=== PATIENT | male | born 1955 | race Caucasian/White ===

== ENCOUNTER → 2018-08-04 09:58 | Outpatient (CLI) | payer BC, SELFPAY ==
[2018-08-04 10:21] LABS: Add Manual Diff / Slide Review NO; Basophils Percent Auto 1.4 % (0-2); Eosinophils Percent Auto 4.2 % (2-4); Hematocrit 41.3 % (41-53); Hemoglobin 14.3 g/dL (13.5-17.5); Lymphocytes Percent Auto 17.4 % (25-40); Mean Corpuscular HGB Conc 34.7 % (30-36); Mean Corpuscular Hemoglobin 31.8 PG (26-34); Mean Corpuscular Volume 91.6 fL (80-100); Monocytes Percent Auto 11.3 % (3-14); Neutrophils Absolute Auto 2400 /uL (3000-5900); Neutrophils Percent Auto 65.7 % (50-75); Platelet Count 150 X10^3/uL (150-400); Red Cell Distribution Width 12.9 % (11.6-14.8); White Blood Cell Count 3.6 X10^3/uL (4.5-11.0)
[2018-08-04 10:53] LABS: Alanine Aminotransferase 43 IU/L (21-72); Albumin 4.3 g/dL (3.5-5.0); Albumin Globulin Ratio 1.3 (1.0-2.8); Alkaline Phosphatase 50 U/L (38-126); Aspartate Aminotransferase 36 IU/L (17-59); Bilirubin Total 0.5 mg/dL (0.2-1.3); Blood Urea Nitrogen 22 mg/dL (9-20); Carbon Dioxide 33 mmol/L (22-32); Chloride 103 mmol/L (98-107); Cholesterol 213 mg/dL (140-199); Estimated Glomerular Filt Rate > 60.0 mL/min (>60); Globulin 3.2 g/dL (1.7-4.1); Glucose 103 mg/dL (80-110); HDL Cholesterol 56 mg/dL (40-60); HEMOLYSIS < 15 (0-50); LDL Cholesterol Calculated 142 mg/dL (<100); Potassium 4.7 mmol/L (3.4-5.1); Sodium 144 mmol/L (137-145); Total Protein 7.5 g/dL (6.3-8.2); Triglycerides 73 mg/dL (35-150)
== END ==
PROVIDERS: PCP Family Medicine; Visit Provider Family Medicine
DX: E78.2 Mixed hyperlipidemia (principal); Z12.5 Encounter for screening for malignant neoplasm of prostate; Z79.01 Long term (current) use of anticoagulants; Z95.2 Presence of prosthetic heart valve
CPT/HCPCS: 36415; 80053; 80061; 84153; 84443; 85025

== ENCOUNTER → 2018-08-18 10:01 | Outpatient (CLI) | payer BC, SELFPAY ==
--- NOTE | 2018-08-18 10:06 | DI.RAD.S_ITS ---
PROCEDURE: XR KNEE RT 3V INDICATIONS: RIGHT KNEE PAIN TECHNIQUE: 3 views of the knee were acquired. COMPARISON: None. FINDINGS: Bones: No fractures or dislocations. No suspicious bony lesions. Minimal narrowing of the medial joint space. Soft tissues: No joint effusion. No suspicious soft tissue calcifications. IMPRESSION: Minimal degenerative joint disease, probably age appropriate. Dictated by: Collin Walters M.D. on 08/18/2018 at 15:32 Approved by: Collin Walters M.D. on 08/18/2018 at 15:34
[2018-08-20 14:10] LABS: PSA Free % 23 % (calc) (> 25); PSA, Total 4.7 ng/mL (< 4.1)
== END ==
PROVIDERS: PCP Family Medicine; Visit Provider Family Medicine
DX: M25.561 Pain in right knee (principal); R97.20 Elevated prostate specific antigen [PSA]
CPT/HCPCS: 36415; 73562; 84153; 84154

== ENCOUNTER → 2018-10-19 09:51 | Outpatient (CLI) | payer BC, SELFPAY | PROVIDERS: PCP Family Medicine; Visit Provider Internal Medicine Endocrinology, Diabetes & Metabolism | DX: M81.0 Age-related osteoporosis without current pathological fracture (principal); Z82.62 Family history of osteoporosis | CPT/HCPCS: 77080 ==

== ENCOUNTER → 2020-06-05 12:41 | Outpatient (CLI) | payer BC, SELFPAY ==
[2020-06-05 13:15] LABS: Add Manual Diff / Slide Review NO; Basophils Absolute Auto 100 /uL (0-100); Basophils Percent Auto 2.3 % (0-2); Eosinophils Absolute Auto 100 /uL (0-450); Eosinophils Percent Auto 4.3 % (2-4); Hematocrit 44.1 % (41-53); Hemoglobin 14.8 g/dL (13.5-17.5); Lymphocytes Absolute Auto 600 /uL (1100-4500); Lymphocytes Percent Auto 20.5 % (25-40); Mean Corpuscular HGB Conc 33.5 % (30-36); Mean Corpuscular Hemoglobin 31.5 PG (26-34); Mean Corpuscular Volume 93.9 fL (80-100); Monocytes Absolute Auto 300 /uL (0-900); Monocytes Percent Auto 11.4 % (3-14); Neutrophils Absolute Auto 1800 /uL (1500-7000); Neutrophils Percent Auto 61.5 % (50-75); Platelet Count 163 X10^3/uL (150-400); Red Cell Distribution Width 13.1 % (11.6-14.8)
[2020-06-05 13:34] LABS: Blood Urea Nitrogen 20 mg/dL (9-20); Calcium 9.4 mg/dL (8.4-10.2); Carbon Dioxide 31 mmol/L (22-32); Chloride 103 mmol/L (98-107); Estimated Glomerular Filt Rate > 60.0 mL/min (>60); Glucose 100 mg/dL (80-110); HEMOLYSIS < 15 (0-50); Magnesium 2.1 mg/dL (1.6-2.3); Potassium 4.7 mmol/L (3.4-5.1); Sodium 138 mmol/L (137-145)
[2020-06-05 14:18] LABS: Thyroid Stimulating Hormone 0.902 uIU/mL (0.47-4.68)
== END ==
PROVIDERS: PCP Family Medicine; Referring Provider Family Medicine; Visit Provider Family Medicine
DX: R42 Dizziness and giddiness (principal)
CPT/HCPCS: 36415; 80048; 83735; 84443; 85025

== ENCOUNTER → 2020-08-21 08:57 | Outpatient (CLI) | payer MEDICARE, SELFPAY ==
[2020-08-21 10:47] LABS: Alanine Aminotransferase 37 IU/L (<50); Albumin 4.3 g/dL (3.5-5.0); Albumin Globulin Ratio 1.4 (1.0-2.8); Alkaline Phosphatase 50 U/L (38-126); Aspartate Aminotransferase 37 IU/L (17-59); BUN Creatinine Ratio 21.9 (6-22); Bilirubin Total 0.6 mg/dL (0.2-1.3); Blood Urea Nitrogen 23 mg/dL (9-20); Calcium 9.3 mg/dL (8.4-10.2); Carbon Dioxide 33 mmol/L (22-32); Chloride 104 mmol/L (98-107); Cholesterol 213 mg/dL (140-199); Estimated Glomerular Filt Rate > 60.0 mL/min (>60); Globulin 3.1 g/dL (1.7-4.1); Glucose 102 mg/dL (80-110); HDL Cholesterol 62 mg/dL (40-60); HEMOLYSIS < 15 (0-50); LDL Cholesterol Calculated 131 mg/dL (<100); Potassium 4.8 mmol/L (3.4-5.1); Sodium 140 mmol/L (137-145); Total Protein 7.4 g/dL (6.3-8.2); Triglycerides 98 mg/dL (35-150)
[2020-08-22 08:03] LABS: PSA Free % 25.7 % (.); PSA, Total 4.7 ng/mL (0.0-4.0)
== END ==
PROVIDERS: PCP Family Medicine; Referring Provider Family Medicine; Visit Provider Family Medicine
DX: E78.2 Mixed hyperlipidemia (principal); R97.20 Elevated prostate specific antigen [PSA]; Z13.6 Encounter for screening for cardiovascular disorders
CPT/HCPCS: 36415; 80053; 80061; 84153; 84154

== ENCOUNTER → 2020-11-29 14:31 | Outpatient (CLI) | payer MEDICARE, SELFPAY ==
[2020-11-29] MEDS: COVID-19 VACC #1, MRNA(MOD) 100 MCG/0.5 ML VIAL IM (14:37)
== END ==
PROVIDERS: PCP Family Medicine; Visit Provider Internal Medicine
DX: Z23 Encounter for immunization (principal)
CPT/HCPCS: 0011A; 91301

== ENCOUNTER → 2020-12-27 14:21 | Outpatient (CLI) | payer MEDICARE, SELFPAY ==
[2020-12-27] MEDS: COVID-19 VACC #2, MRNA(MOD) 100 MCG/0.5 ML VIAL IM (14:39)
== END ==
PROVIDERS: PCP Family Medicine; Visit Provider Internal Medicine
DX: Z23 Encounter for immunization (principal)
CPT/HCPCS: 0012A; 91301

== ENCOUNTER → 2021-03-20 09:02 | Outpatient (CLI) | payer MEDICARE, SELFPAY ==
[2021-03-20 10:26] LABS: COVID19 -Nasal RAPID Negative (Negative)
== END ==
PROVIDERS: PCP Family Medicine; Referring Provider Surgery; Visit Provider Surgery
DX: Z20.822 Contact with and (suspected) exposure to COVID-19 (principal); Z01.812 Encounter for preprocedural laboratory examination
CPT/HCPCS: 87635; C9803

== ENCOUNTER 2021-03-21 06:46 | Day surgery (SDC) | payer MEDICARE, SELFPAY ==
[2021-03-21] VITALS (9 sets, daily range): BP systolic 105–147; BP diastolic 53–73; PULSE 47–60; RESP 8–18; TEMP 36.4–36.8; O2SAT 96–99; BMI 23.6
[2021-03-21] MEDS: SODIUM CHLORIDE 0.9% 1,000 ML 200 ML IV (07:10)
--- NOTE | 2021-03-21 07:31 | P.HP_ITS ---
History of Present Illness History of Present Illness Date Patient Seen: 03/21/21 Time Patient Seen: 07:32 Chief complaint: DX/SCREENING COLONOSCOPY Narrative: This is a 65-year-old man with a complex medical history including aortic root replacement and aortic valve replacement in 2004, chronic anticoagulation on warfarin, orchidectomy for testicular cancer in 1999, family history of colon cancer in his mother who was diagnosed around age 70, and personal history of colon polyps. He has had screening colonoscopies every 5 years, and his last 1 was done in February of 2016. No polyps were found on that colonoscopy. He is due for screening colonoscopy at the 5 year klever because of the family history. 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 He last saw his precision thread grinder operator in August, and says that he was given a clean bill of health at that point based on EKG and exam. He denies any melena, hematochezia, unexplained abdominal pain, unexplained weight loss, change in bowel habit. We will go ahead with colonoscopy today with his coumadin on board. His INR is 2.5. We have agreed that if anything is found that needs to be removed he will stop his coumadin and have a repeat scope at a later time. ROS: Thirteen system review is otherwise negative other than as mentioned below and in HPI. PE: GENERAL: Well groomed and cooperative. Appears stated age. Answers questions promptly and appropriately. Vital signs noted. HENT: Normocephalic, atraumatic. Hearing intact. EYES: Conjunctiva pink, sclera white, no periorbital swelling. CARDIOVASCULAR: Regular rate. No pedal edema. RESPIRATORY: Non-tachypneic, breathing comfortably on room air. GASTROINTESTINAL: Abdomen soft and non-distended GENITALURINARY: No flank tenderness. MUSCULOSKELETAL: Equal tone and mass bilaterally. SKIN: Warm, dry, soft, appropriate color for ethnicity. No other lesions, rashes, or wounds. NEURO: Alert and Oriented X 3. No gross sensory deficits, or cognitive issues. PSYCH: Appropriate affect and mood. 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 Tobacco & Substance use: Smoking Status Never smoker alcohol intake current Meds Home Medications and Allergies Home Medications Medication Instructions Recorded Confirmed Type calcium citrate-vitamin D3 1 tab PO DAILY #0 01/21/17 03/21/21 History [Citracal + D Maximum] multivitamin [Multiple Vitamins] 1 tab PO QDAY #0 01/21/17 03/21/21 History aspirin 81 mg tablet,delayed 81 mg PO DAILY 08/18/18 03/21/21 History release coenzyme Q10 100 mg capsule 100 mg PO DAILY 08/18/18 03/21/21 History magnesium oxide 500 mg tablet 500 mg PO DAILY tab 08/18/18 03/21/21 History omega-3 fatty acids 1,000 mg PO DAILY 08/18/18 03/21/21 History metoprolol succinate 25 mg 25 mg PO DAILY 90 Days #90 tab 08/28/20 03/21/21 Rx tablet,extended release 24 hr simvastatin 40 mg tablet See Rx Instructions .ROUTE 08/28/20 03/21/21 Rx .COMPLEX #90 tablet warfarin 5 mg tablet 10 mg PO DAILY 90 Days #100 tab 08/28/20 03/21/21 Rx vitamin B complex 1 tab PO DAILY 10/04/20 03/21/21 History epinephrine [EpiPen] 0.3 mg IM ONCE PRN 03/21/21 03/21/21 History Allergies Allergy/AdvReac Type Severity Reaction Status Date / Time No Known Drug Allergies Allergy Verified 01/18/21 08:13 Assessment & Plan Assessment and plan (1) Status post aortic valve replacement and aortoplasty: Status: None (2) History of ascending aorta repair: Status: None (3) custodial current use of anticoagulant therapy: Status: None (4) Personal history of colonic polyps: Status: Acute (5) Family history of colon cancer in mother: Status: Acute Assessment & Plan narrative: Risks and benefits of screening colonoscopy and possible polypectomy were discussed with the patient including risk of bleeding, perforation, need for additional procedures, risks of anesthesia. The patient desires to proceed with the colonoscopy procedure. COVID-19 COVID-19 status: Negative Result date/Date tested (Pos, Neg/Pending): 03/20/21 Time Spent With Patient Time with patient: 15-24 minutes
--- NOTE | 2021-03-21 07:39 | PM.OP.ENDO ---
Operative Date/Time/Diagnoses Date of procedure: 03/21/21 Time of procedure: 07:40 Pre-op diagnosis: Personal history colon polyps, high risk family history for colon cancer Post-op diagnosis: same (No polyps found on today's exam) Procedure & Clinicians Study performed: Colonoscopy Procedural sedation performed by the endoscopist Same procedure as scheduled: Yes Indications: Personal history colon polyps, high risk family history of colon cancer Surgeon: Gerda Chavez Procedure Notes SCOAP/Timeout: Performed Procedure in detail: The patient was brought to the room and placed in left lateral decubitus position with all bony prominences padded. A time-out was performed and then the patient was given procedural sedation starting with [4] mg of Versed and [100] mcg of fentanyl. Vitals were monitored throughout the procedure and remained stable. Once adequately sedated, the procedure was begun. A rectal exam was performed revealing [no abnormalities]. The colonoscope was then introduced to the rectum and advanced to the cecum in the usual fashion. []The cecum was identified by the appendiceal orifice, the mucosal tri-fold, and the ileocecal valve. The scope was then retracted while rotating side to side and examining each mucosal fold. [] At the conclusion of the procedure retroflexion was performed and [small grade 1-2 internal hemorrhoids without stigmata of bleeding were seen]. The scope was then withdrawn from the rectum the procedure was concluded. The patient tolerated the procedure well and was transferred to the PACU in stable condition. Total of 8 mg of Versed and 50 micro g of fentanyl were given for the entire procedure. Scope withdrawal time: 6 Sedation minutes: 18 Specimen(s): none sent Complications: none Post-procedure Recommendations: Colonscopy in 5 years (Due to family history and personal history of colon polyps) Follow up: as needed Disposition: PACU
[2021-03-21] MEDS: MIDAZOLAM 5 MG/5 ML VIAL IV (07:44)
[2021-03-21] MEDS: fentaNYL 250 MCG/5 ML INJ IV (07:44)
== END 2021-03-21 09:05 | disposition home or self-care (01) ==
PROVIDERS: PCP Family Medicine; Referring Provider Surgery; Visit Provider Surgery
PROC: 0DJD8ZZ Inspection of Lower Intestinal Tract, Via Natural or Artificial Opening Endoscopic (ICD-10-PCS; CPT 45378; principal; 2021-03-21 07:45)
DX: Z12.11 Encounter for screening for malignant neoplasm of colon (principal); Z86.010 Personal history of colon polyps; Z80.0 Family history of malignant neoplasm of digestive organs; Z95.2 Presence of prosthetic heart valve; Z79.01 Long term (current) use of anticoagulants; K64.1 Second degree hemorrhoids
CPT/HCPCS: G0105; 85610; 99152; J2250; J3010

== ENCOUNTER → 2021-03-26 16:55 | Outpatient (CLI) | payer MEDICARE, SELFPAY ==
[2021-03-26 18:16] LABS: Prostate Specific Antigen 5.58 ng/mL (0.10-4.00)
== END ==
PROVIDERS: PCP Family Medicine; Referring Provider Specialist; Visit Provider Specialist
DX: R97.20 Elevated prostate specific antigen [PSA] (principal)
CPT/HCPCS: 36415; 84153

== ENCOUNTER → 2021-08-23 06:49 | Outpatient (CLI) | payer MEDICARE, SELFPAY ==
[2021-08-23 09:29] LABS: Alanine Aminotransferase 35 IU/L (<50); Albumin Globulin Ratio 1.4 (1.0-2.8); Alkaline Phosphatase 51 U/L (38-126); Aspartate Aminotransferase 35 IU/L (17-59); BUN Creatinine Ratio 23.9 (6-22); Bilirubin Total 0.5 mg/dL (0.2-1.3); Blood Urea Nitrogen 28 mg/dL (9-20); Calcium 9.5 mg/dL (8.4-10.2); Carbon Dioxide 31 mmol/L (22-32); Chloride 103 mmol/L (98-107); Cholesterol 197 mg/dL (140-199); Estimated Glomerular Filt Rate > 60.0 mL/min (>60); Globulin 2.8 g/dL (1.7-4.1); Glucose 115 mg/dL (80-110); HDL Cholesterol 70 mg/dL (40-60); HEMOLYSIS < 15 (0-50); LDL Cholesterol Calculated 105 mg/dL (<100); Potassium 4.2 mmol/L (3.4-5.1); Sodium 140 mmol/L (137-145); Total Protein 6.8 g/dL (6.3-8.2); Triglycerides 108 mg/dL (35-150)
== END ==
PROVIDERS: PCP Family Medicine; Referring Provider Family Medicine; Visit Provider Family Medicine
DX: E78.2 Mixed hyperlipidemia (principal); R79.9 Abnormal finding of blood chemistry, unspecified
CPT/HCPCS: 36415; 80053; 80061

== ENCOUNTER → 2021-09-20 13:59 | Outpatient (CLI) | payer MEDICARE, SELFPAY ==
[2021-09-20] MEDS: COVID-19 VACC #3, MRNA(MOD) 50 MCG/0.25 ML VIAL IM (14:03)
== END ==
PROVIDERS: PCP Family Medicine; Visit Provider Internal Medicine
DX: Z23 Encounter for immunization (principal)
CPT/HCPCS: 0013A; 91301

== ENCOUNTER → 2021-12-18 06:59 | Outpatient (CLI) | payer MEDICARE, SELFPAY ==
[2021-12-18 10:06] LABS: Prostate Specific Antigen 5.88 ng/mL (0.10-4.00)
== END ==
PROVIDERS: PCP Family Medicine; Referring Provider Specialist; Visit Provider Specialist
DX: R97.20 Elevated prostate specific antigen [PSA] (principal); N13.8 Other obstructive and reflux uropathy; N40.1 Benign prostatic hyperplasia with lower urinary tract symptoms
CPT/HCPCS: 36415; 84153

== ENCOUNTER → 2022-01-06 09:59 | Outpatient (CLI) | payer MEDICARE, SELFPAY ==
--- NOTE | 2022-01-06 10:01 | DI.MRI.S_ITS ---
PROCEDURE: MR PELIS WO/W CON INDICATIONS: BPH TECHNIQUE: Coronal HASTE, axial T1 FSE with fat saturation, 3-plane nonbreath-hold T2 FSE. After the administration of contrast, dynamic axial, delayed axial and coronal VIBE or 2-D FLASH with fat saturation through the pelvis. Optional diffusion weighted imaging and ADC may be performed. COMPARISON: None. FINDINGS: Image quality: There is magnetic susceptibility artifact within the rectum markedly limiting diffusion-weighted images. Prostate: Gland size is 4.8 x 3.4 x 3.0 cm; ellipsoid gland volume is 25 mL. The transition zone is heterogeneous in appearance with mild nodularity. Lesion size(s): Lesion 1: Approximately 1.9 x 0.8 x 1.8 cm. Lesion location(s) (sector): Lesion 1: Left posterolateral peripheral zone centered in the mid prostate. Lesion description: Lesion 1: There is an oval moderately T2 hypointense lesion with indistinct margins. The lesion extends to the capsule laterally without definite extraprostatic extension. T2 weighted imaging (T2WI) morphology score: Lesion 1: 3 Diffusion weighted imaging (DWI) morphology score: Lesion 1: 3 Dynamic contrast enhancement (DCE): Lesion 1: Present Lesion PI-RADS score: Lesion 1: PI-RADS 4 Genitourinary system: Bladder wall thickness is normal. Distal ureters are non distended. Bowel and peritoneum: No pathologic free pelvic fluid. Inferior colon and small bowel loops are normal in caliber. Nodes and vessels: No pelvic or inguinal adenopathy by size criteria. Iliac vessels are normal in caliber. Soft tissues: No inguinal hernias. Bones: Marrow demonstrates normal overall signal, without suspicious osseous lesions identified. IMPRESSION: 1. PI-RADS 4 lesion demonstrated within the left peripheral zone at high suspicion for clinically significant prostate cancer. No definite evidence of extraprostatic extension. 2. No pelvic lymphadenopathy. 3. No suspicious osseous lesions in the pelvis. Dictated by: Adelfo Sanchez M.D. on 01/06/2022 at 16:32 Approved by: Adelfo Sanchez M.D. on 01/06/2022 at 16:47
== END ==
PROVIDERS: PCP Family Medicine; Referring Provider Specialist; Visit Provider Specialist
DX: N40.1 Benign prostatic hyperplasia with lower urinary tract symptoms (principal); N13.8 Other obstructive and reflux uropathy
CPT/HCPCS: 72197; A9579

== ENCOUNTER → 2022-01-08 06:50 | Outpatient (CLI) | payer MEDICARE, SELFPAY ==
[2022-01-09 08:12] LABS: PSA Free % 25.5 % (.); PSA, Total 5.5 ng/mL (0.0-4.0)
== END ==
PROVIDERS: PCP Family Medicine; Referring Provider Specialist; Visit Provider Specialist
DX: R97.20 Elevated prostate specific antigen [PSA] (principal)
CPT/HCPCS: 36415; 84153; 84154

== ENCOUNTER → 2022-09-18 09:32 | Outpatient (CLI) | payer MEDICARE, SELFPAY ==
[2022-09-18 10:36] LABS: Hemoglobin A1C% w Est Avg Glu 5.9 % (4.0-6.0)
[2022-09-18 10:38] LABS: Alanine Aminotransferase 40 IU/L (<50); Albumin 4.2 g/dL (3.5-5.0); Albumin Globulin Ratio 1.3 (1.0-2.8); Alkaline Phosphatase 61 U/L (38-126); Aspartate Aminotransferase 37 IU/L (17-59); BUN Creatinine Ratio 17.5 (6-22); Bilirubin Total 0.7 mg/dL (0.2-1.3); Blood Urea Nitrogen 21 mg/dL (9-20); Calcium 8.8 mg/dL (8.4-10.2); Carbon Dioxide 30 mmol/L (22-32); Chloride 104 mmol/L (98-107); Cholesterol 207 mg/dL (140-199); Estimated Glomerular Filt Rate > 60 mL/min (>60); Globulin 3.2 g/dL (1.7-4.1); Glucose 109 mg/dL (80-110); HDL Cholesterol 65 mg/dL (40-60); HEMOLYSIS < 15 (0-50); LDL Cholesterol Calculated 125 mg/dL (<100); Potassium 4.2 mmol/L (3.4-5.1); Sodium 138 mmol/L (137-145); Total Protein 7.4 g/dL (6.3-8.2); Triglycerides 86 mg/dL (35-150)
[2022-09-18 10:43] LABS: Add Manual Diff / Slide Review NO; Basophils Absolute Auto 0 /uL (0-100); Basophils Percent Auto 1.4 % (0-2); Eosinophils Absolute Auto 100 /uL (0-450); Eosinophils Percent Auto 4.5 % (2-4); Hematocrit 41.9 % (41-53); Hemoglobin 13.9 g/dL (13.5-17.5); Lymphocytes Absolute Auto 500 /uL (1100-4500); Lymphocytes Percent Auto 15.7 % (25-40); Mean Corpuscular HGB Conc 33.1 % (30-36); Mean Corpuscular Hemoglobin 30.8 PG (26-34); Monocytes Absolute Auto 300 /uL (0-900); Monocytes Percent Auto 9.6 % (3-14); Neutrophils Absolute Auto 2200 /uL (1500-7000); Neutrophils Percent Auto 68.8 % (50-75); Platelet Count 132 X10^3/uL (150-400); Red Cell Distribution Width 12.8 % (11.6-14.8); White Blood Cell Count 3.2 X10^3/uL (4.5-11.0)
[2022-09-18 11:08] LABS: Prostate Specific Antigen 8.54 ng/mL (0.10-4.00)
== END ==
PROVIDERS: PCP Family Medicine; Referring Provider Family Medicine; Visit Provider Family Medicine
DX: Z00.00 Encounter for general adult medical examination without abnormal findings (principal)
CPT/HCPCS: 36415; 80053; 80061; 83036; 84153; 85025

== ENCOUNTER → 2022-10-15 06:56 | Outpatient (CLI) | payer MEDICARE, SELFPAY ==
[2022-10-15 10:34] LABS: Prostate Specific Antigen 6.43 ng/mL (0.10-4.00)
== END ==
PROVIDERS: PCP Family Medicine; Referring Provider Family Medicine; Visit Provider Family Medicine
DX: R97.20 Elevated prostate specific antigen [PSA] (principal)
CPT/HCPCS: 36415; 84153

== ENCOUNTER 2022-11-13 05:20 | Observation (INO) | payer MEDICARE, SELFPAY ==
[2022-11-13] VITALS (19 sets, daily range): BP systolic 116–153; BP diastolic 57–67; PULSE 44–54; RESP 16–18; TEMP 36.2–36.4; O2SAT 93–99; BMI 25.0
--- NOTE | 2022-11-13 05:45 | DI.CT.S_ITS ---
PROCEDURE: CT ANGIO CHEST ABDOMEN PELVIS INDICATIONS: dissection protocol/chest pain TECHNIQUE: Precontrast 5 mm thick sections acquired from the lung apices to the iliac crests. After the administration of intravenous contrast, 2.5 mm thick sections again acquired from the lung apices to the iliac crests. Maximum intensity projection (MIP) oblique sagittal and coronal reformats were then acquired. For radiation dose reduction, the following was used: automated exposure control. COMPARISON: None. FINDINGS: Image quality: Excellent. AORTA: No aortic dissection. No acute aortic syndrome. Aortic valve replacement and aortic root repair. Aortic root measures 3.7 cm. Aortic isthmus measures 3.2 cm. The left vertebral artery originates off the aortic arch, variant. No pulmonary embolism. CHEST: Lungs and pleura: No acute airspace opacities. Mild bibasilar atelectasis. No pleural effusions or pneumothorax. Central and peripheral airways are patent and normal in caliber. Mediastinum: Post median sternotomy. Heart size is normal. No pericardial effusion. No mediastinal or hilar adenopathy by size criteria. Central pulmonary arteries are normal in size. Esophagus is normal in caliber. No hiatal hernias. Bones and chest wall: No axillary adenopathy by size criteria. Thyroid gland is unremarkable. No suspicious bony lesions. No vertebral body compression fractures. ABDOMEN: Vasculature: No abdominal aortic aneurysm. Celiac trunk and mesenteric arteries are patent. Renal arteries are duplicated and patent. Solid organs: Liver is normal in size and enhancement. Gallbladder is unremarkable. Biliary system is non dilated. Pancreas enhances normally. Spleen is normal in size and enhancement. No adrenal nodules. Both kidneys are normal in size and enhancement, without hydronephrosis. Punctate nonobstructing right kidney stone. Simple right renal cyst measuring 1.6 cm. Peritoneum and bowel: No free fluid or air. Bowel loops are normal in caliber and wall thickness. Normal appendix. Nodes and vessels: No retroperitoneal or mesenteric adenopathy by size criteria. Inferior vena cava is normal in morphology. Miscellaneous: Tiny umbilical hernia. PELVIS: Genitourinary: Bladder wall thickness is normal. Prostate fiducial markers. Miscellaneous: No inguinal hernias or adenopathy. Bones: No suspicious bony lesions. No vertebral body compression fractures. IMPRESSION: 1. No aortic dissection. No acute aortic syndrome. Prior aortic valve and aortic root repair. 2. Lungs are clear. No free fluid in the abdomen or pelvis. No significant discrepancy with the overnight preliminary interpretation. Dictated by: Yvan Cannon M.D. on 11/13/2022 at 8:46 Approved by: Yvan Cannon M.D. on 11/13/2022 at 9:00
--- NOTE | 2022-11-13 05:46 | ED_ITS ---
HPI - Chest Pain <Carlos Flores MD - Last Filed: 11/18/22 18:06> General Chief Complaint: Chest Pain Stated Complaint: pain in left arm into the shoulder Time Seen by Provider: 11/13/22 05:35 Source: patient Mode of arrival: Ambulatory Limitations: no limitations History of Present Illness HPI narrative: Patient here with spouse. Has complaints of left chest left arm left shoulder pain with nausea and diaphoresis. 5/10 pain. Pain is nonreproducible. Heart rate noted, patient states this is baseline. He does have history of heart valve replacement on warfarin, surgery in 2004 has been doing well. He sees Dr. Colón cardiology with [facility]. Had echocardiogram last year. Is due for another 1 for 2022. Does have history of aortic aneurysm, patient states ascending aorta, medical charts his abdominal aneurysm. Denies abdominal pain. Through the week he is had intermittent back pain. No recent illness fever chills cough cold or congestion. Related Data Home Medications Medication Instructions Recorded Confirmed multivitamin (Multiple Vitamins 1 tab PO QDAY ##0 01/21/17 11/13/22 tablet) coenzyme Q10 100 mg capsule 100 mg PO DAILY 08/18/18 11/13/22 magnesium oxide 500 mg tablet 500 mg PO DAILY 08/18/18 11/13/22 omega-3 fatty acids 1,000 mg PO DAILY 08/18/18 11/13/22 epinephrine 0.3 mg/0.3 mL 0.3 mg IM ONCE PRN bee sting 03/21/21 11/13/22 injection, auto-injector (EpiPen) calcium citrate 315 mg 2 tab PO DAILY #0 tabs 08/27/21 11/13/22 calcium-vitamin D3 6.25 mcg (250 unit) tablet (Citracal + Vitamin D Maximum) fluoride (sodium) 1.1 % dental 1 applic dental DAILY 09/18/22 11/13/22 paste (PreviDent 5000 Booster Plus) riboflavin (vitamin B2) 5 mg tablet 10 mg PO DAILY 11/13/22 11/13/22 Previous Rx's Medication Instructions Recorded warfarin 5 mg tablet 10 mg PO DAILY 90 days #100 tabs 08/28/20 alfuzosin 10 mg tablet,extended See Rx Instructions .Route 08/05/22 release 24 hr .COMPLEX #90 tabs metoprolol succinate 25 mg See Rx Instructions .Route 11/18/22 tablet,extended release 24 hr .COMPLEX #90 tabs simvastatin 40 mg tablet See Rx Instructions .Route 11/18/22 .COMPLEX #90 tabs Allergies Allergy/AdvReac Type Severity Reaction Status Date / Time No Known Drug Allergies Allergy Verified 09/18/22 08:38 Review of Systems <Carlos Flores MD - Last Filed: 11/18/22 18:06> Review of Systems Narrative: GENERAL: negative chills, fatigue, malaise, fever, positive sweats. HEENT: negative sinus pain, ear pain, sore throat RESPIRATORY: negative dyspnea, cough CARDIOVASCULAR: Positive chest pain, palpitations GASTROINTESTINAL: Positive nausea, negative vomiting, abdominal pain : negative dysuria, frequency, hematuria MUSCULOSKELETAL: negative muscle or bony pain SKIN: negative rash, skin lesions NEUROLOGIC: negative weakness, numbness ROS Unobtainable: All systems reviewed & are unremarkable except as noted in HPI and below Patient History <Carlos Flores MD - Last Filed: 11/18/22 18:06> Medical History AAA (abdominal aortic aneurysm) (~1998) BPH NOS w/o ur obs/LUTS BPH w urinary obs/LUTS Chicken pox (~1959) Colon polyps (~2004) Decline in verbal memory Elevated PSA Measles (~1959) Multiple nevi Mumps (~1959) Osteopenia (~2004) Osteoporosis (~2014) Sebaceous cyst Testicular cancer (~1998) Testicular cancer Well adult exam Surgical History Anesthesia History of testicular surgery Hx of aortic root repair MRSA (methicillin resistant Staphylococcus aureus) (~2013) 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 Social History marital status: household members: spouse Smoking Status: Never smoker alcohol intake: current substance use type: does not use caffeine: Yes Smoking Status: Never smoker alcohol intake frequency: 0-2 drinks per day Substance Use Type: does not use Exam <Carlos Flores MD - Last Filed: 11/18/22 18:06> Narrative Exam Narrative: GENERAL: in no distress, not toxic not dyspneic HEAD: Normocephalic. EYES: Pupils equal round No scleral icterus. ENT: Mucous membranes moist. NECK: Trachea midline. CARDIOVASCULAR: Regular rate and rhythm, systolic murmur audible RESPIRATORY: Clear to auscultation. Breath sounds equal bilaterally. No wheezes, rales, or rhonchi. GASTROINTESTINAL: Abdomen soft, non-tender EXTREMITIES: No gross deformities. BACK: No flank tenderness. NEURO: AOx4. SKIN: Warm and dry PSYCH: Not anxious, is cooperative Initial Vital Signs Initial Vital Signs: Vital Signs Temperature 97.1 F L 11/13/22 05:32 Pulse Rate 44 L 11/13/22 05:32 Respiratory Rate 16 11/13/22 05:32 Blood Pressure 153/63 H 11/13/22 05:32 Pulse Oximetry 97 11/13/22 05:32 Oxygen Delivery Method 11/13/22 05:32 <Valery Garner DO - Last Filed: 11/13/22 13:10> Initial Vital Signs Initial Vital Signs: Vital Signs Temperature 97.1 F L 11/13/22 05:32 Pulse Rate 44 L 11/13/22 05:32 Respiratory Rate 16 11/13/22 05:32 Blood Pressure 153/63 H 11/13/22 05:32 Pulse Oximetry 97 11/13/22 05:32 Oxygen Delivery Method 11/13/22 05:32 Scores <Carlos Flores MD - Last Filed: 11/18/22 18:06> HEART Score Heart Score Total: 5 <Valery Garner DO - Last Filed: 11/13/22 13:10> HEART Score Heart Score history: Highly Suspicious Heart Score EKG: Normal Heart Score Age: > or = 65 years old Heart Score risk factors: 1-2 risk factors Heart Score troponin: < or = to normal limit Heart Score Total: 5 Course <Carlos Flores MD - Last Filed: 11/18/22 18:06> Orders Ordered: Discontinued Medications Acetaminophen (Acetaminophen 325 Mg Tablet) 650 mg PO Q6H PRN PRN Reason: Fever/Mild Pain (1-3) Aspirin (Aspirin 81 Mg Chew Tab) 324 mg PO NOW ONE Stop: 11/13/22 05:32 Last Admin: 11/13/22 06:02 Dose: Not Given Documented By: WILLIAM Aspirin (Aspirin 81 Mg Chew Tab) 324 mg PO NOW ONE Stop: 11/13/22 06:49 Last Admin: 11/13/22 08:04 Dose: 324 mg Documented By: CAMERON Aspirin (Aspirin Ec 81 Mg Tablet) 81 mg PO NOW ONE Stop: 11/13/22 12:27 Last Admin: 11/13/22 13:03 Dose: Not Given Documented By: KEYON Aspirin (Aspirin Ec 81 Mg Tablet) 81 mg PO DAILY [facility] Atorvastatin Calcium (Atorvastatin 20 Mg Tablet) 40 mg PO BEDTIME [facility] Last Admin: 11/13/22 22:08 Dose: Not Given Documented By: IZZY Nitroglycerin (Nitroglycerin Oint 1 Inch/Gm Oint...G.) 0.5 inch TOP NOW ONE Stop: 11/13/22 06:50 Last Admin: 11/13/22 08:03 Dose: 0.5 inch Documented By: CAMERON Ondansetron HCl (Ondansetron 4 Mg/2 Ml Inj) 4 mg IV Q8HR PRN PRN Reason: Nausea And Vomiting Warfarin Sodium (Warfarin 5 Mg Tablet) 10 mg PO DAILY [facility] Last Admin: 11/14/22 10:09 Dose: Not Given Documented By: BR Vital Signs Vital signs: Vital Signs - 8 hr 11/13/22 05:32 11/13/22 07:00 11/13/22 08:03 Temperature 97.1 F L Pulse Rate 44 L 46 L 47 L Respiratory Rate 16 18 Blood Pressure 153/63 H 136/58 L Pulse Oximetry 97 98 Oxygen Delivery Method Room Air 11/13/22 07:56 11/13/22 07:57 11/13/22 07:57 Temperature Pulse Rate 46 L 45 L Respiratory Rate Blood Pressure 127/60 Pulse Oximetry 96 97 Oxygen Delivery Method 11/13/22 08:00 11/13/22 08:00 11/13/22 08:30 Temperature Pulse Rate 44 L Respiratory Rate Blood Pressure 136/58 L 144/67 H Pulse Oximetry 98 Oxygen Delivery Method 11/13/22 08:30 11/13/22 09:00 11/13/22 09:00 Temperature Pulse Rate 47 L 46 L Respiratory Rate Blood Pressure 146/63 H Pulse Oximetry 97 99 Oxygen Delivery Method 11/13/22 09:30 11/13/22 09:30 Temperature Pulse Rate 50 L Respiratory Rate 18 Blood Pressure 133/63 Pulse Oximetry 98 Oxygen Delivery Method <Valery Garner DO - Last Filed: 11/13/22 13:10> Orders Ordered: Discontinued Medications Acetaminophen (Acetaminophen 325 Mg Tablet) 650 mg PO Q6H PRN PRN Reason: Fever/Mild Pain (1-3) Aspirin (Aspirin 81 Mg Chew Tab) 324 mg PO NOW ONE Stop: 11/13/22 05:32 Last Admin: 11/13/22 06:02 Dose: Not Given Documented By: WILLIAM Aspirin (Aspirin 81 Mg Chew Tab) 324 mg PO NOW ONE Stop: 11/13/22 06:49 Last Admin: 11/13/22 08:04 Dose: 324 mg Documented By: CAMERON Aspirin (Aspirin Ec 81 Mg Tablet) 81 mg PO NOW ONE Stop: 11/13/22 12:27 Last Admin: 11/13/22 13:03 Dose: Not Given Documented By: KEYON Aspirin (Aspirin Ec 81 Mg Tablet) 81 mg PO DAILY [facility] Atorvastatin Calcium (Atorvastatin 20 Mg Tablet) 40 mg PO BEDTIME [facility] Last Admin: 11/13/22 22:08 Dose: Not Given Documented By: IZZY Nitroglycerin (Nitroglycerin Oint 1 Inch/Gm Oint...G.) 0.5 inch TOP NOW ONE Stop: 11/13/22 06:50 Last Admin: 11/13/22 08:03 Dose: 0.5 inch Documented By: CAMERON Ondansetron HCl (Ondansetron 4 Mg/2 Ml Inj) 4 mg IV Q8HR PRN PRN Reason: Nausea And Vomiting Warfarin Sodium (Warfarin 5 Mg Tablet) 10 mg PO DAILY [facility] Last Admin: 11/14/22 10:09 Dose: Not Given Documented By: BR Vital Signs Vital signs: Vital Signs - 8 hr 11/13/22 05:32 11/13/22 07:00 11/13/22 08:03 Temperature 97.1 F L Pulse Rate 44 L 46 L 47 L Respiratory Rate 16 18 Blood Pressure 153/63 H 136/58 L Pulse Oximetry 97 98 Oxygen Delivery Method Room Air 11/13/22 07:56 11/13/22 07:57 11/13/22 07:57 Temperature Pulse Rate 46 L 45 L Respiratory Rate Blood Pressure 127/60 Pulse Oximetry 96 97 Oxygen Delivery Method 11/13/22 08:00 11/13/22 08:00 11/13/22 08:30 Temperature Pulse Rate 44 L Respiratory Rate Blood Pressure 136/58 L 144/67 H Pulse Oximetry 98 Oxygen Delivery Method 11/13/22 08:30 11/13/22 09:00 11/13/22 09:00 Temperature Pulse Rate 47 L 46 L Respiratory Rate Blood Pressure 146/63 H Pulse Oximetry 97 99 Oxygen Delivery Method 11/13/22 09:30 11/13/22 09:30 Temperature Pulse Rate 50 L Respiratory Rate 18 Blood Pressure 133/63 Pulse Oximetry 98 Oxygen Delivery Method MDM - Chest Pain <Carlos Flores MD - Last Filed: 11/18/22 18:06> Differential Diagnosis Differential diagnosis: Likely stable angina, unstable angina pectoris, atypical chest pain, st elevation myocardial infarction and other (Dissection) Medical Records Data Medical records narrative: I did review previous visit with Dr. Colón in the office from last fall. Lab Data Result diagrams: 11/14/22 05:25 11/14/22 05:25 Labs: Lab Results 11/13/22 11/13/22 11/13/22 Range/Units 05:39 05:39 05:39 WBC 3.1 L (4.5-11.0) X10^3/uL RBC 4.42 L (4.5-5.9) X10^6/uL Hgb 13.9 (13.5-17.5) g/dL Hct 40.3 L (41-53) % MCV 91.0 (80-100) fL MCH 31.4 (26-34) PG MCHC 34.5 (30-36) % RDW 13.3 (11.6-14.8) % Plt Count 130 L (150-400) X10^3/uL Neut % (Auto) 55.7 (50-75) % Lymph % (Auto) 24.6 L (25-40) % Gaines % (Auto) 12.8 (3-14) % Eos % (Auto) 5.4 H (2-4) % Baso % (Auto) 1.5 (0-2) % Neut # (Auto) 1800 (3279-0065) /uL Lymph # (Auto) 800 L (2734-0199) /uL Gaines # (Auto) 400 (0-900) /uL Eos # (Auto) 200 (0-450) /uL Baso # (Auto) 0 (0-100) /uL Clumped Platelets RBC Morphology Normal morphology PT 28.5 H (10.1-12.7) SECONDS INR 2.5 H (0.9-1.3) APTT 36 (26-36) SECONDS Sodium 138 (137-145) mmol/L Potassium 4.1 (3.4-5.1) mmol/L Chloride 105 (98-107) mmol/L Carbon Dioxide 27 (22-32) mmol/L BUN 21 H (9-20) mg/dL Creatinine 0.99 (0.66-1.25) mg/dL Estimated GFR > 60 (>60) mL/min BUN/Creatinine Ratio 21.2 (6-22) Glucose 104 (80-110) mg/dL Calcium 8.7 (8.4-10.2) mg/dL Magnesium 2.0 (1.6-2.3) mg/dL Total Bilirubin 0.5 (0.2-1.3) mg/dL AST 37 (17-59) IU/L ALT 39 (<50) IU/L Alkaline Phosphatase 51 (38-126) U/L Total Creatine Kinase 119 (55-170) U/L CK-MB (CK-2) 1.57 (<2.37) ng/mL CK-MB (CK-2) Rel Index 1.3 L (1.5-5.0) % Troponin I < 0.012 (0.01-0.034) ng/mL Total Protein 7.0 (6.3-8.2) g/dL Albumin 4.0 (3.5-5.0) g/dL Globulin 3.0 (1.7-4.1) g/dL Albumin/Globulin Ratio 1.3 (1.0-2.8) Lipase 119 (23-300) U/L SARS-CoV-2 (PCR) (Negative) 11/13/22 11/13/22 Range/Units 06:00 07:50 WBC (4.5-11.0) X10^3/uL RBC (4.5-5.9) X10^6/uL Hgb (13.5-17.5) g/dL Hct (41-53) % MCV (80-100) fL MCH (26-34) PG MCHC (30-36) % RDW (11.6-14.8) % Plt Count (150-400) X10^3/uL Neut % (Auto) (50-75) % Lymph % (Auto) (25-40) % Gaines % (Auto) (3-14) % Eos % (Auto) (2-4) % Baso % (Auto) (0-2) % Neut # (Auto) (1600-7921) /uL Lymph # (Auto) (5384-0785) /uL Gaines # (Auto) (0-900) /uL Eos # (Auto) (0-450) /uL Baso # (Auto) (0-100) /uL Clumped Platelets RBC Morphology PT (10.1-12.7) SECONDS INR (0.9-1.3) APTT (26-36) SECONDS Sodium (137-145) mmol/L Potassium (3.4-5.1) mmol/L Chloride (98-107) mmol/L Carbon Dioxide (22-32) mmol/L BUN (9-20) mg/dL Creatinine (0.66-1.25) mg/dL Estimated GFR (>60) mL/min BUN/Creatinine Ratio (6-22) Glucose (80-110) mg/dL Calcium (8.4-10.2) mg/dL Magnesium (1.6-2.3) mg/dL Total Bilirubin (0.2-1.3) mg/dL AST (17-59) IU/L ALT (<50) IU/L Alkaline Phosphatase (38-126) U/L Total Creatine Kinase 113 (55-170) U/L CK-MB (CK-2) 1.44 (<2.37) ng/mL CK-MB (CK-2) Rel Index 1.3 L (1.5-5.0) % Troponin I 0.013 (0.01-0.034) ng/mL Total Protein (6.3-8.2) g/dL Albumin (3.5-5.0) g/dL Globulin (1.7-4.1) g/dL Albumin/Globulin Ratio (1.0-2.8) Lipase (23-300) U/L SARS-CoV-2 (PCR) Negative (Negative) Imaging Data CT angiogram chest abdomen and pelvis: Radiologist's Impression: Read by overnight radiologist impression no aortic aneurysm or dissection. No a cute cardiopulmonary process patent CT angiogram of the abdomen pelvis. No aneurysm dissection or occlusion ECG Data Interpretation: Sinus bradycardia rate [address] elevation or depression Treatment and disposition Social Determinants of Health that impact treatment or disposition: History of aortic aneurysm/aortic valve replacement Code Status and discussions:: Full code Shared decision making:: Patient and MDM Narrative Medical decision making narrative: Patient here with spouse. Has complaints of left chest left arm left shoulder pain with nausea and diaphoresis. 5/10 pain. Pain is nonreproducible. Heart rate noted, patient states this is baseline. He does have history of heart valve replacement on warfarin, surgery in 2004 has been doing well. He sees Dr. Colón cardiology with [facility]. Had echocardiogram last year. Is due for another 1 for 2022. Does have history of aortic aneurysm, patient states ascending aorta, medical charts his abdominal aneurysm. Denies abdominal pain. Through the week he is had intermittent back pain. No recent illness fever chills cough cold or congestion. After exam and history, CBC CMP troponin EKG CT scan chest abdomen pelvis were ordered. At this time will hold on aspirin and nitro paste until results of CT imaging, differential diagnosis includes aortic dissection. I have reviewed EKG, no acute injury pattern seen 7:[address] Garner, repeat troponin is pending. Results of CT imaging are pending as well. Patient may need admission for stress echo/chest pain rule out <Valery Garner, - Last Filed: 11/13/22 13:10> Lab Data Labs: Lab Results 11/13/22 11/13/22 11/13/22 Range/Units 05:39 05:39 05:39 WBC 3.1 L (4.5-11.0) X10^3/uL RBC 4.42 L (4.5-5.9) X10^6/uL Hgb 13.9 (13.5-17.5) g/dL Hct 40.3 L (41-53) % MCV 91.0 (80-100) fL MCH 31.4 (26-34) PG MCHC 34.5 (30-36) % RDW 13.3 (11.6-14.8) % Plt Count 130 L (150-400) X10^3/uL Neut % (Auto) 55.7 (50-75) % Lymph % (Auto) 24.6 L (25-40) % Gaines % (Auto) 12.8 (3-14) % Eos % (Auto) 5.4 H (2-4) % Baso % (Auto) 1.5 (0-2) % Neut # (Auto) 1800 (7583-0042) /uL Lymph # (Auto) 800 L (3740-6912) /uL Gaines # (Auto) 400 (0-900) /uL Eos # (Auto) 200 (0-450) /uL Baso # (Auto) 0 (0-100) /uL Clumped Platelets RBC Morphology Normal morphology PT 28.5 H (10.1-12.7) SECONDS INR 2.5 H (0.9-1.3) APTT 36 (26-36) SECONDS Sodium 138 (137-145) mmol/L Potassium 4.1 (3.4-5.1) mmol/L Chloride 105 (98-107) mmol/L Carbon Dioxide 27 (22-32) mmol/L BUN 21 H (9-20) mg/dL Creatinine 0.99 (0.66-1.25) mg/dL Estimated GFR > 60 (>60) mL/min BUN/Creatinine Ratio 21.2 (6-22) Glucose 104 (80-110) mg/dL Calcium 8.7 (8.4-10.2) mg/dL Magnesium 2.0 (1.6-2.3) mg/dL Total Bilirubin 0.5 (0.2-1.3) mg/dL AST 37 (17-59) IU/L ALT 39 (<50) IU/L Alkaline Phosphatase 51 (38-126) U/L Total Creatine Kinase 119 (55-170) U/L CK-MB (CK-2) 1.57 (<2.37) ng/mL CK-MB (CK-2) Rel Index 1.3 L (1.5-5.0) % Troponin I < 0.012 (0.01-0.034) ng/mL Total Protein 7.0 (6.3-8.2) g/dL Albumin 4.0 (3.5-5.0) g/dL Globulin 3.0 (1.7-4.1) g/dL Albumin/Globulin Ratio 1.3 (1.0-2.8) Lipase 119 (23-300) U/L SARS-CoV-2 (PCR) (Negative) 11/13/22 11/13/22 Range/Units 06:00 07:50 WBC (4.5-11.0) X10^3/uL RBC (4.5-5.9) X10^6/uL Hgb (13.5-17.5) g/dL Hct (41-53) % MCV (80-100) fL MCH (26-34) PG MCHC (30-36) % RDW (11.6-14.8) % Plt Count (150-400) X10^3/uL Neut % (Auto) (50-75) % Lymph % (Auto) (25-40) % Gaines % (Auto) (3-14) % Eos % (Auto) (2-4) % Baso % (Auto) (0-2) % Neut # (Auto) (0936-6932) /uL Lymph # (Auto) (0902-5526) /uL Gaines # (Auto) (0-900) /uL Eos # (Auto) (0-450) /uL Baso # (Auto) (0-100) /uL Clumped Platelets RBC Morphology PT (10.1-12.7) SECONDS INR (0.9-1.3) APTT (26-36) SECONDS Sodium (137-145) mmol/L Potassium (3.4-5.1) mmol/L Chloride (98-107) mmol/L Carbon Dioxide (22-32) mmol/L BUN (9-20) mg/dL Creatinine (0.66-1.25) mg/dL Estimated GFR (>60) mL/min BUN/Creatinine Ratio (6-22) Glucose (80-110) mg/dL Calcium (8.4-10.2) mg/dL Magnesium (1.6-2.3) mg/dL Total Bilirubin (0.2-1.3) mg/dL AST (17-59) IU/L ALT (<50) IU/L Alkaline Phosphatase (38-126) U/L Total Creatine Kinase 113 (55-170) U/L CK-MB (CK-2) 1.44 (<2.37) ng/mL CK-MB (CK-2) Rel Index 1.3 L (1.5-5.0) % Troponin I 0.013 (0.01-0.034) ng/mL Total Protein (6.3-8.2) g/dL Albumin (3.5-5.0) g/dL Globulin (1.7-4.1) g/dL Albumin/Globulin Ratio (1.0-2.8) Lipase (23-300) U/L SARS-CoV-2 (PCR) Negative (Negative) ECG Data Interpretation: Sinus bradycardia rate [address] elevation or depression patsy-normal sinus rhythm rate 45 CO interval 180 QRS [address] changes no T-wave inversions no changes from prior MDM Narrative Medical decision making narrative: Patient here with spouse. Has complaints of left chest left arm left shoulder p ain with nausea and diaphoresis. 5/10 pain. Pain is nonreproducible. Heart rate noted, patient states this is baseline. He does have history of heart valve replacement on warfarin, surgery in 2004 has been doing well. He sees Dr. Colón cardiology with [facility]. Had echocardiogram last year. Is due for another 1 for 2022. Does have history of aortic aneurysm, patient states ascending aorta, medical charts his abdominal aneurysm. Denies abdominal pain. Through the week he is had intermittent back pain. No recent illness fever chills cough cold or congestion. After exam and history, CBC CMP troponin EKG CT scan chest abdomen pelvis were ordered. At this time will hold on aspirin and nitro paste until results of CT imaging, differential diagnosis includes aortic dissection. I have reviewed EKG, no acute injury pattern seen 7:[address] Garner, repeat troponin is pending. Results of CT imaging are pending as well. Patient may need admission for stress echo/chest pain rule out Patsy-patient is a 67-year-old male history of aortic valve replacement on warfarin presenting today with left arm achiness and discomfort. He woke up this morning with left arm pain. On his walk from the emergency department parking lot into the ED he was a little short of breath. noted that when he woke up he was also clammy. He says his discomfort has slowly dissipated. He has 2 normal EKGs 2- troponins. He is high risk, history of hyperlipidemia hypertension. INR is 2.5. Admitted for observation to Dr. Jodi OZUNA CC: Left arm pain Complicating co-morbidities: Aortic valve replacement, AAA repair in 1998 hyperlipidemia, testicular cancer, colon polyps Corroborating data: [ ] Data collected from: Patient Medical records reviewed: PCP note from 09/18/2022 Differential considered: Dissection aneurysm acute coronary syndrome, angina Exam documented above, pertinent findings include: Left arm discuss Lab Test results independently reviewed as above. Pertinent findings: 2- troponins electrolytes within normal limits Independently reviewed EKG as above Imaging studies independently reviewed: Consultations: Dr. Zapata accepts patient Treatments: Nitro paste Re-evaluations: After nitro paste discomfort has relieved Discussion: Patient has acute coronary syndrome symptoms other etiologies have been ruled out. He is not having an NSTEMI at this time. Will need further testing and placed observation Diagnosis: Chest pain Disposition: Admit to observation Discharge Plan Departure Patient Disposition: Admitted as Observation Clinical Impression: Chest pain Admit Date/Time: 11/13/22 09:49 Admit Provider: Buzz Zapata
[2022-11-13 05:52] LABS: Basophils Absolute Auto 0 /uL (0-100); Basophils Percent Auto 1.5 % (0-2); Eosinophils Absolute Auto 200 /uL (0-450); Eosinophils Percent Auto 5.4 % (2-4); Hematocrit 40.3 % (41-53); Hemoglobin 13.9 g/dL (13.5-17.5); Lymphocytes Absolute Auto 800 /uL (1100-4500); Lymphocytes Percent Auto 24.6 % (25-40); Mean Corpuscular HGB Conc 34.5 % (30-36); Mean Corpuscular Hemoglobin 31.4 PG (26-34); Monocytes Absolute Auto 400 /uL (0-900); Monocytes Percent Auto 12.8 % (3-14); Neutrophils Absolute Auto 1800 /uL (1500-7000); Neutrophils Percent Auto 55.7 % (50-75); Platelet Count 130 X10^3/uL (150-400); Red Blood Cell Count 4.42 X10^6/uL (4.5-5.9); Red Cell Distribution Width 13.3 % (11.6-14.8); White Blood Cell Count 3.1 X10^3/uL (4.5-11.0)
[2022-11-13 05:59] LABS: INR 2.5 (0.9-1.3); Prothrombin Time 28.5 SECONDS (10.1-12.7)
[2022-11-13 06:00] LABS: Add Manual Diff / Slide Review SLIDE REVIEW
[2022-11-13 06:02] LABS: PTT Partial Thromboplastin Tim 36 SECONDS (26-36)
[2022-11-13 06:04] LABS: Alanine Aminotransferase 39 IU/L (<50); Albumin Globulin Ratio 1.3 (1.0-2.8); Alkaline Phosphatase 51 U/L (38-126); Aspartate Aminotransferase 37 IU/L (17-59); BUN Creatinine Ratio 21.2 (6-22); Bilirubin Total 0.5 mg/dL (0.2-1.3); Blood Urea Nitrogen 21 mg/dL (9-20); Calcium 8.7 mg/dL (8.4-10.2); Carbon Dioxide 27 mmol/L (22-32); Chloride 105 mmol/L (98-107); Creatine Kinase 119 U/L (55-170); Estimated Glomerular Filt Rate > 60 mL/min (>60); Glucose 104 mg/dL (80-110); Lipase 119 U/L (23-300); Potassium 4.1 mmol/L (3.4-5.1); Sodium 138 mmol/L (137-145)
[2022-11-13 06:15] LABS: Troponin I < 0.012 ng/mL (0.01-0.034)
[2022-11-13 06:18] LABS: CKMB % Relative Index 1.3 % (1.5-5.0); Creatine Kinase MB 1.57 ng/mL (<2.37); HEMOLYSIS 17 (0-50)
[2022-11-13 06:27] LABS: COVID19 -Nasal RAPID Negative (Negative)
[2022-11-13 06:29] LABS: RBC Morphology Normal Morphology
[2022-11-13] MEDS: NITROGLYCERIN OINT 1 INCH/GM OINT...G. 0.5 INCH TOP (08:03)
[2022-11-13] MEDS: ASPIRIN 81 MG CHEW TAB 324 MG PO (08:04)
[2022-11-13 08:13] LABS: Creatine Kinase 113 U/L (55-170)
[2022-11-13 08:25] LABS: Troponin I 0.013 ng/mL (0.01-0.034)
[2022-11-13 08:28] LABS: CKMB % Relative Index 1.3 % (1.5-5.0); Creatine Kinase MB 1.44 ng/mL (<2.37)
--- NOTE | 2022-11-13 10:10 | PM.HP.1 ---
History of Present Illness History of Present Illness Date Patient Seen: 11/13/22 Time Patient Seen: 10:00 Chief complaint: pain in left arm into the shoulder Narrative: Mr. Ellington is a 67M with PMH AAA, s/p mechanical AVR, BPH, testicular cancer who presents to the hospital with left shoulder and left arm discomfort. When this happened he did have nausea and diaphoresis. He did not have shortness of breath. His pain started at rest. He had no worsening of pain with movement or exertion. He said pain felt sort of like muscle cramp/tightness but he could not palpate or stretch any muscle. No fevers/chills, no cough. In the ED workup was done, vitals notable for afebrile, heart rate in the 40s, blood pressure 150s/60s. Labs notable for WBC 3.1, hgb 13.9, plts 130, creatinine 0.99. INR 2.5. Trop negative initially, then 0.013. COVID negative. CT angio chest/abdomen/pelvis with no acute process noted. Nitro didn't improve pain very much. He was admitted for further treatment. 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 Social History: household members spouse Safety & Behavioral: Feels Safe in Current Yes Environment Tobacco & Substance use: Smoking Status Never smoker alcohol intake current alcohol intake frequency 0-2 drinks per day Substance Use Type does not use Meds Home Medications and Allergies Home Medications Medication Instructions Recorded Confirmed Type multivitamin (Multiple Vitamins 1 tab PO QDAY ##0 01/21/17 09/18/22 History tablet) coenzyme Q10 100 mg capsule 100 mg PO DAILY 08/18/18 09/18/22 History magnesium oxide 500 mg tablet 500 mg PO DAILY 08/18/18 09/18/22 History omega-3 fatty acids 1,000 mg PO DAILY 08/18/18 09/18/22 History warfarin 5 mg tablet 10 mg PO DAILY 90 days #100 tabs 08/28/20 09/18/22 Rx epinephrine 0.3 mg/0.3 mL 0.3 mg IM ONCE PRN bee sting 03/21/21 09/18/22 History injection, auto-injector (EpiPen) vitamin B complex 1 tab PO DAILY 06/11/21 09/18/22 History calcium citrate 315 mg 2 tab PO DAILY #0 tabs 08/27/21 09/18/22 History calcium-vitamin D3 6.25 mcg (250 unit) tablet (Citracal + Vitamin D Maximum) alfuzosin 10 mg tablet,extended See Rx Instructions .Route 08/05/22 09/18/22 Rx release 24 hr .COMPLEX #90 tabs fluoride (sodium) 1.1 % dental 1 applic dental DAILY 09/18/22 09/18/22 History paste (PreviDent 5000 Booster Plus) metoprolol succinate 25 mg See Rx Instructions .Route 09/18/22 09/18/22 Rx tablet,extended release 24 hr .COMPLEX #90 tabs simvastatin 40 mg tablet See Rx Instructions .Route 09/18/22 09/18/22 Rx .COMPLEX #90 tabs Allergies Allergy/AdvReac Type Severity Reaction Status Date / Time No Known Drug Allergies Allergy Verified 09/18/22 08:38 Review of Systems Review of Systems Narrative: 14 systems reviewed and negative aside from what is noted in HPI Exam Vital Signs (past 8 hours): - 11/13/22 05:32 11/13/22 07:00 11/13/22 08:03 Temperature 97.1 F L Pulse Rate 44 L 46 L 47 L Respiratory Rate 16 18 Blood Pressure 153/63 H 136/58 L Pulse Oximetry 97 98 Oxygen Delivery Method Room Air 11/13/22 07:56 11/13/22 07:57 11/13/22 07:57 Temperature Pulse Rate 46 L 45 L Respiratory Rate Blood Pressure 127/60 Pulse Oximetry 96 97 Oxygen Delivery Method 11/13/22 08:00 11/13/22 08:00 11/13/22 08:30 Temperature Pulse Rate 44 L Respiratory Rate Blood Pressure 136/58 L 144/67 H Pulse Oximetry 98 Oxygen Delivery Method 11/13/22 08:30 11/13/22 09:00 11/13/22 09:00 Temperature Pulse Rate 47 L 46 L Respiratory Rate Blood Pressure 146/63 H Pulse Oximetry 97 99 Oxygen Delivery Method 11/13/22 09:30 11/13/22 09:30 Temperature Pulse Rate 50 L Respiratory Rate 18 Blood Pressure 133/63 Pulse Oximetry 98 Oxygen Delivery Method Oxygen Delivery Method Room Air Narrative Exam Narrative: GEN: no acute distress HEENT: moist mucous membranes, PERRL NECK: trachea midline, no JVD PULM: clear bilaterally, no wheezes rhonchi rales CHEST: sternal scar noted, no reproducible pain CV: bradycardic with no murmurs ABD: soft, nontender, nondistneded, no organomegaly EXT: warm and well perfused with no edema NEURO: awake, alert, oriented, no focal deficits Objective Labs Result Diagrams: 11/13/22 05:39 11/13/22 05:39 Labs: Laboratory Results - last 24 hr 11/13/22 11/13/22 11/13/22 05:39 05:39 05:39 WBC 3.1 L RBC 4.42 L Hgb 13.9 Hct 40.3 L MCV 91.0 MCH 31.4 MCHC 34.5 RDW 13.3 Plt Count 130 L Neut % (Auto) 55.7 Lymph % (Auto) 24.6 L Waller % (Auto) 12.8 Eos % (Auto) 5.4 H Baso % (Auto) 1.5 Neut # (Auto) 1800 Lymph # (Auto) 800 L Waller # (Auto) 400 Eos # (Auto) 200 Baso # (Auto) 0 Clumped Platelets RBC Morphology Normal morphology PT 28.5 H INR 2.5 H APTT 36 Sodium 138 Potassium 4.1 Chloride 105 Carbon Dioxide 27 BUN 21 H Creatinine 0.99 Estimated GFR > 60 BUN/Creatinine Ratio 21.2 Glucose 104 Calcium 8.7 Magnesium 2.0 Total Bilirubin 0.5 AST 37 ALT 39 Alkaline Phosphatase 51 Total Creatine Kinase 119 CK-MB (CK-2) 1.57 CK-MB (CK-2) Rel Index 1.3 L Troponin I < 0.012 Total Protein 7.0 Albumin 4.0 Globulin 3.0 Albumin/Globulin Ratio 1.3 Lipase 119 SARS-CoV-2 (PCR) 11/13/22 11/13/22 06:00 07:50 WBC RBC Hgb Hct MCV MCH MCHC RDW Plt Count Neut % (Auto) Lymph % (Auto) Waller % (Auto) Eos % (Auto) Baso % (Auto) Neut # (Auto) Lymph # (Auto) Waller # (Auto) Eos # (Auto) Baso # (Auto) Clumped Platelets RBC Morphology PT INR APTT Sodium Potassium Chloride Carbon Dioxide BUN Creatinine Estimated GFR BUN/Creatinine Ratio Glucose Calcium Magnesium Total Bilirubin AST ALT Alkaline Phosphatase Total Creatine Kinase 113 CK-MB (CK-2) 1.44 CK-MB (CK-2) Rel Index 1.3 L Troponin I 0.013 Total Protein Albumin Globulin Albumin/Globulin Ratio Lipase SARS-CoV-2 (PCR) Negative Assessment & Plan Assessment & Plan narrative: 1. Chest pain -first troponin negative, second slightly rising, continue to trend -ordered for aspirin, statin -nitro paste ordered with no improvement -EKG shows no acute process -HEART score of 4 -other possible etiology is MSK with shoulder pain -CT angio negative for any vascular abnormality -plan for exercise stress test -hold metoprolol 2. BPH, and history of testicular cancer -continue home medications 3. s/p mechanical AVR -daily coumadin check -continue coumadin -INR at goal currently over 2 I reviewed the chest imaging myself, I did discuss the patient's plan of care with the ED physician. CODE: Full Proxy: Betty Ellington, I have utilized all available resources to reconcile the patient's home medications Time Spent With Patient Critical Care time: I spent a total of [] minutes of critical care time on this patient's care today; this time is exclusive of procedural time. Quality MIPS - Meds 'Current medications' to include all prescriptions, [id number] products, herbals, cannabis/cannabidiol products, and vitamin/mineral/dietary (nutritional) supplements. I have utilized all available resources to obtain, update, or review the patient?s current medications. [If Yes, STOP here]: Yes
--- NOTE | 2022-11-13 13:22 | PC.NURSE ---
Pt to room 219-awake alert and oriented. Oriented to room, call light, bed controls, and tv controls. Denies pain, nausea, shortness of breath or dizziness. States he has a slight headache. Denies needs at this time and agrees to call for assistance as needed.
[2022-11-13 13:45] LABS: Troponin I < 0.012 ng/mL (0.01-0.034)
[2022-11-14 01:00] VITALS: BP 112/62; PULSE 52; RESP 16; TEMP 36.5; O2SAT 95
[2022-11-14 04:41] VITALS: BP 107/47; PULSE 47; RESP 16; TEMP 36.4; O2SAT 95
[2022-11-14 06:18] LABS: BUN Creatinine Ratio 20.2 (6-22); Blood Urea Nitrogen 21 mg/dL (9-20); Calcium 8.4 mg/dL (8.4-10.2); Carbon Dioxide 28 mmol/L (22-32); Chloride 104 mmol/L (98-107); Estimated Glomerular Filt Rate > 60 mL/min (>60); Glucose 94 mg/dL (80-110); HEMOLYSIS < 15 (0-50); Potassium 3.8 mmol/L (3.4-5.1); Sodium 139 mmol/L (137-145)
[2022-11-14 06:39] LABS: Add Manual Diff / Slide Review NO; Basophils Absolute Auto 100 /uL (0-100); Basophils Percent Auto 1.8 % (0-2); Eosinophils Absolute Auto 200 /uL (0-450); Hematocrit 41.1 % (41-53); Lymphocytes Absolute Auto 600 /uL (1100-4500); Mean Corpuscular Hemoglobin 31.1 PG (26-34); Mean Corpuscular Volume 91.5 fL (80-100); Monocytes Absolute Auto 300 /uL (0-900); Monocytes Percent Auto 10.7 % (3-14); Neutrophils Absolute Auto 2000 /uL (1500-7000); Neutrophils Percent Auto 61.5 % (50-75); Platelet Count 135 X10^3/uL (150-400); Red Blood Cell Count 4.49 X10^6/uL (4.5-5.9); Red Cell Distribution Width 13.2 % (11.6-14.8); White Blood Cell Count 3.2 X10^3/uL (4.5-11.0)
[2022-11-14 08:07] VITALS: BP 125/54; PULSE 52; RESP 16; TEMP 36.2; O2SAT 96
[2022-11-14 09:00] VITALS: O2SAT 96
--- NOTE | 2022-11-14 10:27 | CM.DANOTE ---
DCP: Case received, EMR reviewed and met with patient. Introduced self and role. Was able meet with patient and obtain some information. DCP assessment completed with information currently available. Patient is a 67 year old male who admitted yesterday morning to the care of the hospitalist team. PCP: Dr. Kemp. Payer: confirmed: [employer] Medicare. Patient came to the hospital via private vehicle secondary to having left chest/arm discomfort, and nausea and diaphoresis. Patient has a cardiac history, consisting of past heart valve replacement, and patient is on warfarin. He sees Dr. Colón, colorectal surgeon at [facility]. Patient is here for chest pain, and is expected to have a stress test today. Met with patient in his room. He was sitting up in his chair, alert and oriented, pleasant. Confirmed that he resides here in [place] with spouse, Betty. He is retired, and independent at his baseline. He sees Dr. Kemp as primary care provider. P: DCP to continue to follow. Plan is home when deemed medically stable. Babs Starr RN/Joinery Setter Out Discharge Planning/Care Management CM Discharge Assessment Start: 11/14/22 10:25 Freq: Status: Active Protocol: Document 11/14/22 10:26 (Rec: 11/14/22 10:27 [id number]) Discharge Planning Assessment Assigned Retread Mold Operator Babs Starr RN/Joinery Setter Out Advance Directives? Yes Advance Directives on File No History Provided By Patient,Medical Record Prior Living Arrangements House Household Members spouse Type of transporation used prior to Drives own vehicle admit Independent with ADL's Yes Is patient alert and oriented? Yes Caregiver for Another No Barriers to Discharge No Discharge Plan Home Referrals Initiated None needed Whiteboard Updated in Patient Room with Yes name and ext. # of Retread Mold Operator Review Status In Process Next Review Type Continued Stay Review
[2022-11-14 13:00] VITALS: O2SAT 97
--- NOTE | 2022-11-14 13:37 | P.DS_ITS ---
History of Present Illness History of Present Illness Date Patient Seen: 11/14/22 Chief complaint: pain in left arm into the shoulder Narrative: Mr. Ellington is a 67M with PMH AAA, s/p mechanical AVR, BPH, testicular cancer who presents to the hospital with left shoulder and left arm discomfort. When this happened he did have nausea and diaphoresis. He did not have shortness of breath. His pain started at rest. He had no worsening of pain with movement or exertion. He said pain felt sort of like muscle cramp/tightness but he could not palpate or stretch any muscle. No fevers/chills, no cough. In the ED workup was done, vitals notable for afebrile, heart rate in the 40s, blood pressure 150s/60s. Labs notable for WBC 3.1, hgb 13.9, plts 130, creatinine 0.99. INR 2.5. Trop negative initially, then 0.013. COVID negative. CT angio chest/abdomen/pelvis with no acute process noted. Nitro didn't improve pain very much. He was admitted for further treatment. Discharge Providers Provider Date of admission: 11/13/22 09:49 Discharge Date: 11/14/22 Primary care physician: Tapan Kemp DO Discharge provider: Jj Fairchild DO Summary Hospital Course Discharge Diagnosis: 1. Chest pain, resolved 2. BPH, and history of testicular cancer 3. s/p mechanical AVR 4. Essential hypertension Hospital Course: 67 year old male admitted for further risk stratification of intermediate risk chest pain. Blood pressures were unremarkable on his home medications. He underwent non-nuclear stress testing which was deemed unremarkable by cardiology and had no recurrence of symptoms while admitted. He did have a CTA in the emergency room that showed no acute processes given his history of a AAA. No medication changes were recommended at the time of discharge, and patient should follow up with his PCP as previously scheduled. Time Spent with Patient Time spent: Less than 30 minutes Exam Vital Signs (past 8 hours): - 11/14/22 08:07 Temperature 97.2 F L Pulse Rate 52 L Respiratory Rate 16 Blood Pressure 125/54 L Pulse Oximetry 96 Oxygen Flow Rate 0 Oxygen Delivery Method Room Air Oxygen Flow Rate 0 Narrative Exam Narrative: GEN: no acute distress HEENT: moist mucous membranes, PERRL NECK: trachea midline, no JVD PULM: clear bilaterally, no wheezes rhonchi rales CHEST: sternal scar noted, no reproducible pain CV: bradycardic rate with no murmurs ABD: soft, nontender, nondistneded, no organomegaly EXT: warm and well perfused with no edema NEURO: awake, alert, oriented, no focal deficits Objective Labs Result Diagrams: 11/14/22 05:25 11/14/22 05:25 Labs: Laboratory Results - last 24 hr 11/13/22 11/14/22 11/14/22 12:30 05:25 05:25 WBC 3.2 L RBC 4.49 L Hgb 14.0 Hct 41.1 MCV 91.5 MCH 31.1 MCHC 34.0 RDW 13.2 Plt Count 135 L Neut % (Auto) 61.5 Lymph % (Auto) 20.0 L Randolph % (Auto) 10.7 Eos % (Auto) 6.0 H Baso % (Auto) 1.8 Neut # (Auto) 2000 Lymph # (Auto) 600 L Randolph # (Auto) 300 Eos # (Auto) 200 Baso # (Auto) 100 Sodium 139 Potassium 3.8 Chloride 104 Carbon Dioxide 28 BUN 21 H Creatinine 1.04 Estimated GFR > 60 BUN/Creatinine Ratio 20.2 Glucose 94 Calcium 8.4 Troponin I < 0.012 [facility] Medical History AAA (abdominal aortic aneurysm) (~1998) BPH NOS w/o ur obs/LUTS BPH w urinary obs/LUTS Chicken pox (~1959) Colon polyps (~2004) Decline in verbal memory Elevated PSA Measles (~1959) Multiple nevi Mumps (~1959) Osteopenia (~2004) Osteoporosis (~2014) Sebaceous cyst Testicular cancer (~1998) Testicular cancer Well adult exam Surgical History Anesthesia History of testicular surgery Hx of aortic root repair MRSA (methicillin resistant Staphylococcus aureus) (~2013) 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 Social History marital status: household members: spouse Smoking Status: Never smoker alcohol intake: current substance use type: does not use caffeine: Yes Discharge Plan Discharge Plan Patient Disposition: Home Provider Discharge Comment: You were admitted to the hospital with chest discomfort. Stress testing was unremarkable, please follow up with your primary care provider as previously scheduled. No medication changes are recommended. Discharge orders & Medications Prescriptions: Continued multivitamin [Multiple Vitamins] 1 EACH tablet 1 tab PO QDAY Qty: 0 calcium citrate-vitamin D3 [Citracal + D Maximum] 315 mg-6.25 mcg (250 unit) tablet 2 tab PO DAILY Qty: 0 alfuzosin 10 mg tablet extended release 24 hr See Rx Instructions .ROUTE .COMPLEX Qty: 90 1RF Dose Instruction: TAKE 1 TABLET BY MOUTH AT BEDTIME Rx Instructions: TAKE 1 TABLET BY MOUTH AT BEDTIME coenzyme Q10 100 mg capsule 100 mg PO DAILY omega-3 fatty acids capsule 1,000 mg PO DAILY magnesium oxide 500 mg tablet 500 mg PO DAILY warfarin 5 mg tablet 10 mg PO DAILY 90 Days Qty: 100 3RF fluoride (sodium) [PreviDent 5000 Booster Plus] 1.1 % paste 1 applic dental DAILY metoprolol succinate 25 mg tablet extended release 24 hr See Rx Instructions .ROUTE .COMPLEX Qty: 90 3RF Dose Instruction: TAKE 1 TABLET BY MOUTH DAILY Rx Instructions: TAKE 1 TABLET BY MOUTH DAILY simvastatin 40 mg tablet See Rx Instructions .ROUTE .COMPLEX Qty: 90 3RF Dose Instruction: TAKE 1 TABLET BY MOUTH DAILY Rx Instructions: TAKE 1 TABLET BY MOUTH DAILY riboflavin (vitamin B2) 5 mg Tablet 10 mg PO DAILY epinephrine [EpiPen] 0.3 mg/0.3 mL auto-injector 0.3 mg IM ONCE PRN (Reason: bee sting) Rx Instructions: as a single dose Follow up/Referrals: Tapan Kemp DO [Primary Care Provider] - Diet/Activity/Treatments Diet: Diet as Tolerated Activity: As tolerated Visit Report/Discharge Packet Instructions: DI for Chest Pain Stand Alone Forms: Patient Portal/API, Stroke Signs & Symptoms Discharge Data Primary Care Provider: Tapan Kemp Attending Provider: Buzz Zapata VTE Deep Vein Thrombosis/Pulmonary Embolism Present on Admission: No
--- NOTE | 2022-11-14 19:26 | DI.NM.S_ITS ---
DATE OF SERVICE: 11/14/2022 PROCEDURE: Exercise treadmill stress test without imaging. ORDERING PROVIDER: Dr. Buzz Zapata. INDICATIONS: The patient is a 67-year-old male with a history of aortic valve replacement, admitted with left arm pain and indeterminate troponin. FINDINGS: 1. The patient was able to exercise for 9 minutes, 58 seconds on a standard Castro protocol, suggesting very good exercise capacity with an LUCÍA of -30%, achieving 10.7 METs. 2. He had a normal heart rate and blood pressure response, achieving a maximum heart rate of 161 BPM (105% of his predicted maximum). 3. He had no chest or arm pain or other anginal symptoms with exercise. 4. Resting ECG shows sinus bradycardia at [address] segments. There is slight upsloping, nonspecific ST depression at peak exercise that resolves within 1 minute but no concerning ST-segment shifts. There were rare isolated PVCs but no other arrhythmias. IMPRESSION: 1. Normal exercise treadmill stress test for ischemia. 2. Very good exercise capacity without angina and only rare isolated PVCs. Guillermo Ellington - CHASE/daria/gary doc#: [id number]/job#: [id number] dd: 11/14/2022 12:54:00 dt: 11/14/2022 19:17:00 DICTATING /COPIES TO: Ross Adames MD COPIES MNE: KYLIE
== END 2022-11-14 14:52 | disposition home or self-care (01) ==
LOC: ED 09:15 → AC 09:50
PROVIDERS: Emergency Medicine; Admitting Provider Internal Medicine; Emergency Provider Emergency Medicine; PCP Family Medicine; Referring Provider Emergency Medicine; Visit Provider Internal Medicine
DX: R07.9 Chest pain, unspecified (principal); I10 Essential (primary) hypertension; E78.5 Hyperlipidemia, unspecified; N40.0 Benign prostatic hyperplasia without lower urinary tract symptoms; Z95.2 Presence of prosthetic heart valve; Z20.822 Contact with and (suspected) exposure to COVID-19
CPT/HCPCS: 36415; 71275; 74174; 80048; 80053; 82550; 82553; 83690; 83735; 84484; 85025; 85610; 85730; 87635; 93005; 93010; 93017; 99284; C9803; G0378; Q9967

== ENCOUNTER → 2022-11-18 16:24 | Outpatient (CLI) | payer MEDICARE, SELFPAY ==
[2022-11-13 13:52] VITALS: BMI 25.0
[2022-11-18 18:26] LABS: Prostate Specific Antigen 4.43 ng/mL (0.10-4.00)
== END ==
PROVIDERS: PCP Family Medicine; Referring Provider Physician Assistant; Visit Provider Physician Assistant
DX: C61 Malignant neoplasm of prostate (principal)
CPT/HCPCS: 36415; 84153

== ENCOUNTER → 2023-01-05 06:53 | Outpatient (CLI) | payer MEDICARE, SELFPAY ==
[2022-11-13 13:52] VITALS: BMI 25.0
== END ==
PROVIDERS: PCP Family Medicine; Referring Provider Physician Assistant; Visit Provider Physician Assistant
DX: C61 Malignant neoplasm of prostate (principal)
CPT/HCPCS: 36415; 84154; G0103

== ENCOUNTER → 2023-02-27 06:44 | Outpatient (CLI) | payer MEDICARE, SELFPAY ==
[2022-11-13 13:52] VITALS: BMI 25.0
[2023-02-27 09:13] LABS: Prostate Specific Antigen 3.06 ng/mL (0.10-4.00)
== END ==
PROVIDERS: PCP Family Medicine; Referring Provider Physician Assistant; Visit Provider Physician Assistant
DX: C61 Malignant neoplasm of prostate (principal)
CPT/HCPCS: 36415; 84153

== ENCOUNTER → 2023-08-19 06:40 | Outpatient (CLI) | payer MEDICARE, SELFPAY ==
[2022-11-13 13:52] VITALS: BMI 25.0
[2023-08-19 10:25] LABS: Prostate Specific Antigen 1.49 ng/mL (0.10-4.00)
== END ==
PROVIDERS: PCP Family Medicine; Referring Provider Radiology Radiation Oncology; Visit Provider Radiology Radiation Oncology
DX: C61 Malignant neoplasm of prostate (principal)
CPT/HCPCS: 36415; 84153

== ENCOUNTER → 2023-09-21 06:42 | Outpatient (CLI) | payer MEDICARE, SELFPAY ==
[2022-11-13 13:52] VITALS: BMI 25.0
[2023-09-21 08:04] LABS: Basophils Absolute Auto 100 /uL (0-100); Basophils Percent Auto 2.1 % (0-2); Eosinophils Absolute Auto 300 /uL (0-450); Eosinophils Percent Auto 9.2 % (2-4); Hematocrit 39.7 % (41-53); Hemoglobin 13.7 g/dL (13.5-17.5); Lymphocytes Absolute Auto 700 /uL (1100-4500); Mean Corpuscular HGB Conc 34.4 % (30-36); Mean Corpuscular Hemoglobin 31.6 PG (26-34); Mean Corpuscular Volume 91.8 fL (80-100); Monocytes Absolute Auto 400 /uL (0-900); Monocytes Percent Auto 11.8 % (3-14); Neutrophils Absolute Auto 1700 /uL (1500-7000); Neutrophils Percent Auto 53.9 % (50-75); Platelet Count 135 X10^3/uL (150-400); Red Blood Cell Count 4.32 X10^6/uL (4.5-5.9); Red Cell Distribution Width 12.7 % (11.6-14.8); White Blood Cell Count 3.1 X10^3/uL (4.5-11.0)
[2023-09-21 08:06] LABS: Add Manual Diff / Slide Review SLIDE REVIEW
[2023-09-21 08:30] LABS: Alanine Aminotransferase 39 IU/L (<50); Albumin 3.9 g/dL (3.5-5.0); Albumin Globulin Ratio 1.3 (1.0-2.8); Alkaline Phosphatase 50 U/L (38-126); Aspartate Aminotransferase 37 IU/L (17-59); BUN Creatinine Ratio 16.7 (6-22); Bilirubin Total 0.6 mg/dL (0.2-1.3); Blood Urea Nitrogen 20 mg/dL (9-20); Calcium 9.6 mg/dL (8.4-10.2); Carbon Dioxide 30 mmol/L (22-32); Chloride 103 mmol/L (98-107); Cholesterol 215 mg/dL (140-199); Estimated Glomerular Filt Rate > 60 mL/min (>60); Globulin 2.9 g/dL (1.7-4.1); Glucose 97 mg/dL (80-110); HDL Cholesterol 70 mg/dL (40-60); HEMOLYSIS < 15 (0-50); LDL Cholesterol Calculated 134 mg/dL (<100); Potassium 4.5 mmol/L (3.4-5.1); Sodium 138 mmol/L (137-145); Total Protein 6.8 g/dL (6.3-8.2); Triglycerides 54 mg/dL (35-150)
[2023-09-21 08:53] LABS: RBC Morphology Normal Morphology
[2023-09-21 08:56] LABS: TSH w/ Reflex to FT4 1.26 uIU/mL (0.47-4.68)
== END ==
PROVIDERS: PCP Family Medicine; Referring Provider Family Medicine; Visit Provider Family Medicine
DX: Z00.00 Encounter for general adult medical examination without abnormal findings (principal); C61 Malignant neoplasm of prostate; E78.2 Mixed hyperlipidemia
CPT/HCPCS: 36415; 80053; 80061; 84443; 85025

== ENCOUNTER → 2023-09-25 13:12 | Outpatient (CLI) | payer MEDICARE, SELFPAY ==
[2022-11-13 13:52] VITALS: BMI 25.0
--- NOTE | 2023-09-25 13:14 | DI.MRI.S_ITS ---
PROCEDURE: MR SHOULDER LT WO CON INDICATIONS: adhesive capsulitis left shoulder TECHNIQUE: Noncontrast oblique coronal T2 fast spin echo with fat saturation, oblique sagittal T1 spin echo and T2 fast spin echo with fat saturation, axial T1 spin echo and T2 fast spin echo with fat saturation through the shoulder. COMPARISON: None. FINDINGS: Image quality: Excellent. Rotator cuff: There is high-grade partial bursal sided tearing of the supraspinatus tendon at the anterior insertion measuring 6 mm in anterior-posterior dimension. Low-grade intrasubstance tearing is seen at the posterior supraspinatus tendon insertion. Moderate supraspinatus and infraspinatus tendinosis. The teres minor tendon is intact. There is moderate tendinosis and low-grade partial intrasubstance tearing of the subscapularis tendon at the distal insertion. The rotator cuff musculature is normal in bulk. Bones and bursae: No acute trabecular bone injury or fracture. Chronic traction cystic changes are seen at the posterosuperior humeral head and the lesser tuberosity near the rotator cuff tendon insertions. Partial-thickness cartilage irregularity is seen in the glenohumeral joint. Moderate degenerative changes are seen at the acromioclavicular joint with subchondral cystic changes and edema and marginal osteophyte formation. There is a small amount of fluid in the subacromial/subdeltoid bursa. No significant glenohumeral joint effusion is seen. Capsule and soft tissues: Suspected nondisplaced tearing of the superior labrum from anterosuperior to posterosuperior. The proximal biceps long head tendon demonstrates moderate tendinosis and partial intrasubstance tearing and suspected early medial subluxation on the superior aspect of the bicipital groove. There is effacement of the fat signal in the rotator interval. The anterior band of the glenohumeral ligament and the middle glenohumeral ligament appear mildly thickened and intermediate in signal intensity. IMPRESSION: 1. Effacement of the rotator interval fat and mild thickening and intermediate signal intensity within the middle and inferior glenohumeral ligaments are nonspecific, but can be seen in the setting of the clinical syndrome of adhesive capsulitis. 2. High-grade partial bursal sided tearing of the supraspinatus tendon at the anterior insertion measuring 6 mm in anterior-posterior dimension. Low-grade partial intrasubstance tearing of the posterior supraspinatus tendon. Findings are superimposed on moderate supraspinatus and infraspinatus tendinosis. 3. Moderate subscapularis tendinosis with low-grade partial intrasubstance tearing at the distal insertion. 4. Partial intrasubstance tearing of the proximal biceps long head tendon superimposed on chronic tendinosis with perching versus early medial subluxation at the superior bicipital groove. 5. Nondisplaced tearing of the superior labrum from anterosuperior to posterosuperior. Mild glenohumeral osteoarthrosis. 6. Moderate acromioclavicular osteoarthrosis. 7. Small subacromial/subdeltoid bursal effusion or mild bursitis. Approved by: Tae Rousseau M.D. on 09/25/2023 at 15:02
== END ==
PROVIDERS: PCP Family Medicine; Referring Provider Family Medicine; Visit Provider Family Medicine
DX: M75.02 Adhesive capsulitis of left shoulder (principal); M75.112 Incomplete rotator cuff tear or rupture of left shoulder, not specified as traumatic; S46.112A Strain of muscle, fascia and tendon of long head of biceps, left arm, initial encounter; S43.492A Other sprain of left shoulder joint, initial encounter; M19.012 Primary osteoarthritis, left shoulder
CPT/HCPCS: 73221

== ENCOUNTER 2024-01-09 08:38 | Emergency (ER) | payer MEDICARE, SELFPAY ==
[2022-11-13 13:52] VITALS: BMI 25.0
[2024-01-09 08:48] VITALS: BP 123/62; PULSE 57; O2SAT 94
[2024-01-09 08:52] VITALS: BP 123/62; PULSE 59; RESP 18; TEMP 36.6; O2SAT 96; BMI 26.6
--- NOTE | 2024-01-09 08:58 | ED.GENADULT ---
HPI - General Adult General Chief complaint: Abdominal Pain Stated complaint: constipated fainting Time Seen by Provider: 01/09/24 08:39 Source: patient Mode of arrival: Family Vehicle History of Present Illness HPI narrative: Patient is a 68-year-old male. Approximately 6 days ago underwent a left shoulder surgery. Was on pain medicine for a couple days afterwards. He states that his last bowel movement was a couple days ago. He is since stopped the pain medicine and has been taking Colace although he states he feels like he is very constipated. He does feel like there stool in his rectum. He tried an enema at home but it was unsuccessful. He also has had a history of prostate cancer. He is on a alpha tejinder. He is feel like he is having some problems urinating as well. No fevers. No vomiting. Related Data Home Medications Medication Instructions Recorded Confirmed multivitamin (Multiple Vitamins 1 tab PO QDAY ##0 01/21/17 01/28/23 tablet) coenzyme Q10 100 mg capsule 100 mg PO DAILY 08/18/18 01/28/23 magnesium oxide 500 mg PO DAILY 08/18/18 01/28/23 omega-3 fatty acids 1,000 mg PO DAILY 08/18/18 01/28/23 epinephrine 0.3 mg/0.3 mL 0.3 mg IM ONCE PRN bee sting 03/21/21 01/28/23 injection, auto-injector (EpiPen) calcium citrate 315 mg 2 tab PO DAILY #0 tabs 08/27/21 01/28/23 calcium-vitamin D3 6.25 mcg (250 unit) tablet (Citracal + Vitamin D Maximum) fluoride (sodium) 1.1 % dental 1 applic dental DAILY 09/18/22 01/28/23 paste (PreviDent 5000 Booster Plus) riboflavin (vitamin B2) 5 mg tablet 10 mg PO DAILY 11/13/22 01/28/23 Previous Rx's Medication Instructions Recorded warfarin 5 mg tablet 10 mg (2 x 5 mg) PO DAILY 90 days 08/28/20 #100 tabs metoprolol succinate 25 mg See Rx Instructions .Route 04/21/23 tablet,extended release 24 hr .COMPLEX #90 tabs simvastatin 40 mg tablet See Rx Instructions .Route 04/21/23 .COMPLEX #90 tabs alfuzosin 10 mg tablet,extended 10 mg PO ONCE PM #90 tabs 11/26/23 release 24 hr Allergies Allergy/AdvReac Type Severity Reaction Status Date / Time No Known Drug Allergies Allergy Verified 01/09/24 08:58 Review of Systems Review of Systems ROS Unobtainable: All systems reviewed & are unremarkable except as noted in HPI and below Patient History Medical History Medicare annual wellness visit, subsequent Adhesive capsulitis of left shoulder Prostate cancer Hypertension Decline in verbal memory Sebaceous cyst Multiple nevi Well adult exam BPH w urinary obs/LUTS BPH NOS w/o ur obs/LUTS Elevated PSA Testicular cancer Osteoporosis (~2014) Osteopenia (~2004) Mumps (~1959) Measles (~1959) Chicken pox (~1959) Colon polyps (~2004) AAA (abdominal aortic aneurysm) (~1998) Testicular cancer (~1998) Surgical History (Updated 09/18/23 @ 18:00 by Tapan Kemp DO) H/O prosthetic heart valve History of testicular surgery Hx of aortic root repair Anesthesia 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 Social History marital status: household members: spouse Smoking Status: Never smoker alcohol intake: current substance use type: does not use caffeine: Yes Smoking Status: Never smoker alcohol intake frequency: 0-2 drinks per day Substance Use Type: does not use Exam Initial Vital Signs Initial Vital Signs: Vital Signs Pulse Rate 57 L 01/09/24 08:48 Blood Pressure 123/62 01/09/24 08:48 Pulse Oximetry 94 01/09/24 08:48 Const General: cooperative and comfortable HENMT Head: normal to inspection and normocephalic Resp Effort & Inspection: normal respiratory effort Cardio Rate: regular rate GI Inspection: normal to inspection and non-distended Skin General: no rashes or lesions noted Extrem Other: Left shoulder in sling Course Orders Ordered: ED Orders 01/09/24 08:59 Complete Blood Count AUTO DIFF Stat Comprehensive Metabolic Panel Stat Lipase Stat 01/09/24 09:11 EKG-12 Lead Stat Discontinued Medications Lactulose (Lactulose 20 Gm/30 Ml Solution) 20 gm PO NOW ONE Stop: 01/09/24 09:36 Last Admin: 01/09/24 09:48 Dose: 20 gm Documented By: Sodium Biphosphate/Sodium Phosphate (Fleets Enema) 1 each NC NOW ONE Stop: 01/09/24 09:36 Last Admin: 01/09/24 09:48 Dose: 1 each Documented By: Vital Signs Vital signs: Vital Signs - 8 hr 01/09/24 08:48 01/09/24 08:48 01/09/24 08:52 Temperature 97.8 F Pulse Rate 57 L 59 L Respiratory Rate 18 Blood Pressure 123/62 123/62 Pulse Oximetry 94 96 Oxygen Delivery Method Room Air 01/09/24 09:15 01/09/24 09:30 01/09/24 10:30 Temperature Pulse Rate 51 L 51 L 61 Respiratory Rate 25 H 16 23 Blood Pressure Pulse Oximetry 93 94 95 Oxygen Delivery Method 01/09/24 10:31 Temperature Pulse Rate Respiratory Rate Blood Pressure 126/64 Pulse Oximetry Oxygen Delivery Method Medical Decision Making Lab Data 01/09/24 08:59 01/09/24 08:59 Labs: Lab Results 01/09/24 Range/Units 08:59 WBC 3.3 L (4.5-11.0) X10^3/uL RBC 4.39 L (4.5-5.9) X10^6/uL Hgb 14.0 (13.5-17.5) g/dL Hct 40.6 L (41-53) % MCV 92.4 (80-100) fL MCH 31.9 (26-34) PG MCHC 34.5 (30-36) % RDW 12.5 (11.6-14.8) % Plt Count 131 L (150-400) X10^3/uL Neut % (Auto) 68.7 (50-75) % Lymph % (Auto) 17.2 L (25-40) % Gosper % (Auto) 7.7 (3-14) % Eos % (Auto) 5.5 H (2-4) % Baso % (Auto) 0.9 (0-2) % Neut # (Auto) 2200 (6477-8115) /uL Lymph # (Auto) 600 L (6483-9239) /uL Gosper # (Auto) 300 (0-900) /uL Eos # (Auto) 200 (0-450) /uL Baso # (Auto) 0 (0-100) /uL Sodium 141 (137-145) mmol/L Potassium 3.9 (3.4-5.1) mmol/L Chloride 107 (98-107) mmol/L Carbon Dioxide 27 (22-32) mmol/L BUN 22 H (9-20) mg/dL Creatinine 1.09 (0.66-1.25) mg/dL Estimated GFR > 60 (>60) mL/min BUN/Creatinine Ratio 20.2 (6-22) Glucose 138 H (80-110) mg/dL Calcium 9.3 (8.4-10.2) mg/dL Total Bilirubin 0.6 (0.2-1.3) mg/dL AST 33 (17-59) IU/L ALT 35 (<50) IU/L Alkaline Phosphatase 57 (38-126) U/L Total Protein 7.4 (6.3-8.2) g/dL Albumin 3.9 (3.5-5.0) g/dL Globulin 3.5 (1.7-4.1) g/dL Albumin/Globulin Ratio 1.1 (1.0-2.8) Lipase 68 (23-300) U/L ECG Data Attestation: I personally reviewed and interpreted this ECG as follows: Interpretation: Sinus bradycardia Ventricular rate of 49 Normal axis Normal QRS LVH No ST T wave changes MDM Narrative Medical decision making narrative: After having an enema here in the ER he did have a large bowel movement. He states he felt much better afterwards. Discomfort was gone. No vomiting. I do feel that we can hold on further radiologic studies. No further need for laboratory studies. Informed him that he may now developed some diarrhea but he just needs to increase his fluid intake. He was given return precautions. He expressed understanding and agreement. Discharge Plan Departure Patient Disposition: Home Clinical Impression: Constipation Instructions: DI for Constipation Activity Restrictions/Additional Instructions: Continue to take all of your medications as directed. Be sure that your increasing your fluid intake. Follow all of the postoperative instructions given to you by the orthopedic surgeon. Return to the emergency department for new symptoms. Prescriptions: No Action multivitamin [Multiple Vitamins] 1 EACH tablet 1 tab PO QDAY Qty: 0 calcium citrate-vitamin D3 [Citracal + D Maximum] 315 mg-6.25 mcg (250 unit) tablet 2 tab PO DAILY Qty: 0 metoprolol succinate 25 mg tablet extended release 24 hr See Rx Instructions .ROUTE .COMPLEX Qty: 90 2RF Dose Instruction: TAKE 1 TABLET BY MOUTH DAILY Rx Instructions: TAKE 1 TABLET BY MOUTH DAILY simvastatin 40 mg tablet See Rx Instructions .ROUTE .COMPLEX Qty: 90 2RF Dose Instruction: TAKE 1 TABLET BY MOUTH DAILY Rx Instructions: TAKE 1 TABLET BY MOUTH DAILY alfuzosin 10 mg tablet extended release 24 hr 10 mg PO ONCE PM MDD 10mg Qty: 90 3RF Rx Instructions: Take one tablet by mouth at bedtime coenzyme Q10 100 mg capsule 100 mg PO DAILY omega-3 fatty acids capsule 1,000 mg PO DAILY magnesium oxide 500 mg tablet 500 mg PO DAILY warfarin 5 mg tablet 10 mg PO DAILY 90 Days Qty: 100 3RF fluoride (sodium) [PreviDent 5000 Booster Plus] 1.1 % paste 1 applic dental DAILY riboflavin (vitamin B2) 5 mg Tablet 10 mg PO DAILY epinephrine [EpiPen] 0.3 mg/0.3 mL auto-injector 0.3 mg IM ONCE PRN (Reason: bee sting) Rx Instructions: as a single dose Referrals: Tapan Kemp DO [Primary Care Provider] - Stand Alone Forms: Patient Portal/API
[2024-01-09 09:15] VITALS: PULSE 51; RESP 25; O2SAT 93
[2024-01-09 09:25] LABS: Add Manual Diff / Slide Review NO; Alanine Aminotransferase 35 IU/L (<50); Albumin 3.9 g/dL (3.5-5.0); Albumin Globulin Ratio 1.1 (1.0-2.8); Alkaline Phosphatase 57 U/L (38-126); Aspartate Aminotransferase 33 IU/L (17-59); BUN Creatinine Ratio 20.2 (6-22); Basophils Absolute Auto 0 /uL (0-100); Basophils Percent Auto 0.9 % (0-2); Bilirubin Total 0.6 mg/dL (0.2-1.3); Blood Urea Nitrogen 22 mg/dL (9-20); Calcium 9.3 mg/dL (8.4-10.2); Carbon Dioxide 27 mmol/L (22-32); Chloride 107 mmol/L (98-107); Eosinophils Absolute Auto 200 /uL (0-450); Eosinophils Percent Auto 5.5 % (2-4); Estimated Glomerular Filt Rate > 60 mL/min (>60); Globulin 3.5 g/dL (1.7-4.1); Glucose 138 mg/dL (80-110); HEMOLYSIS < 15 (0-50); Hematocrit 40.6 % (41-53); Lipase 68 U/L (23-300); Lymphocytes Absolute Auto 600 /uL (1100-4500); Lymphocytes Percent Auto 17.2 % (25-40); Mean Corpuscular HGB Conc 34.5 % (30-36); Mean Corpuscular Hemoglobin 31.9 PG (26-34); Mean Corpuscular Volume 92.4 fL (80-100); Monocytes Absolute Auto 300 /uL (0-900); Monocytes Percent Auto 7.7 % (3-14); Neutrophils Absolute Auto 2200 /uL (1500-7000); Neutrophils Percent Auto 68.7 % (50-75); Platelet Count 131 X10^3/uL (150-400); Potassium 3.9 mmol/L (3.4-5.1); Red Blood Cell Count 4.39 X10^6/uL (4.5-5.9); Red Cell Distribution Width 12.5 % (11.6-14.8); Sodium 141 mmol/L (137-145); Total Protein 7.4 g/dL (6.3-8.2); White Blood Cell Count 3.3 X10^3/uL (4.5-11.0)
[2024-01-09 09:30] VITALS: PULSE 51; RESP 16; O2SAT 94
[2024-01-09] MEDS: FLEETS ENEMA 1 EACH PR (09:48)
[2024-01-09] MEDS: LACTULOSE 20 GM/30 ML SOLUTION PO (09:48)
[2024-01-09 10:30] VITALS: PULSE 61; RESP 23; O2SAT 95
[2024-01-09 10:31] VITALS: BP 126/64; PULSE 57; RESP 21; O2SAT 95
== END 2024-01-09 10:40 | disposition home or self-care (01) ==
PROVIDERS: Emergency Provider Emergency Medicine; PCP Family Medicine
DX: K59.00 Constipation, unspecified (principal); R00.1 Bradycardia, unspecified
CPT/HCPCS: 36415; 80053; 83690; 85025; 93005; 93010; 99284

== ENCOUNTER → 2024-01-27 14:38 | Outpatient (CLI) | payer MEDICARE, SELFPAY ==
[2022-11-13 13:52] VITALS: BMI 25.0
[2024-01-27 16:03] LABS: Prostate Specific Antigen Scrn 0.953 ng/mL (0.1-4.0)
== END ==
PROVIDERS: PCP Family Medicine; Referring Provider Specialist; Visit Provider Specialist
DX: Z12.5 Encounter for screening for malignant neoplasm of prostate (principal); C61 Malignant neoplasm of prostate; R97.20 Elevated prostate specific antigen [PSA]
CPT/HCPCS: 36415; G0103

== ENCOUNTER 2024-05-08 02:20 | Emergency (ER) | payer MEDICARE, SELFPAY ==
[2022-11-13 13:52] VITALS: BMI 25.0
[2024-05-08 02:26] VITALS: BP 136/64; PULSE 56; RESP 16; TEMP 36.3; O2SAT 94; BMI 24.3
--- NOTE | 2024-05-08 02:42 | DI.CT.S_ITS ---
PROCEDURE: CT HEAD/BRAIN WO CON INDICATIONS: head injury on blood thinners TECHNIQUE: Noncontrast 4.5 mm thick angled axial sections acquired from the foramen magnum to the vertex, with coronal and sagittal reformats. For radiation dose reduction, the following was used: automated exposure control, adjustment of mA and/or kV according to patient size. COMPARISON: None. FINDINGS: Image quality: Diagnostic. CSF spaces: Basal cisterns are patent. No extra-axial fluid collections. The ventricles are symmetric in size and shape. Brain: No intracranial bleeds or masses. There is cerebral volume loss for age, with resultant ventricular and sulcal prominence. There are periventricular and deep white matter chronic small vessel ischemic changes. There is intracranial internal carotid artery atherosclerosis. Skull and face: Calvarium and visualized facial bones appear intact, without suspicious lesions. Sinuses: Visualized sinuses demonstrate scattered mucosal thickening. IMPRESSION: 1. No acute intracranial process. 2. Minimal mild atrophy and chronic microvascular ischemic changes. The above findings are concordant with preliminary report. Dictated by: Jeri Graham M.D. on 05/08/2024 at 7:58 Approved by: Jeri Graham M.D. on 05/08/2024 at 7:59
--- NOTE | 2024-05-08 05:54 | ED.HEATRA ---
HPI - Head Injury <Frankie Luo MD - Last Filed: 05/08/24 18:48> General Chief complaint: Head Injury Stated complaint: fell out of bed, head injury Time Seen by Provider: 05/08/24 05:38 Source: patient Mode of arrival: Ambulatory History of Present Illness HPI Narrative: 68-year-old male with history of mechanical valve replacement 2004 at [facility] on chronic warfarin anticoagulation, had a dream 2:00 a.m. last night that he was wrestling, and turned abruptly rolling out of bed, striking his head on adjacent dresser, sustaining laceration to left eyebrow area. No loss of consciousness. No nausea or vomiting. No weakness to face arm or leg. No neck pain. No seizure shaking activity. Bleeding seems controlled. He frequently checks his INR, and has been 2.5-3.5 range. No recent dose changes of his warfarin medication. Related Data Home Medications Medication Instructions Recorded Confirmed multivitamin (Multiple Vitamins 1 tab PO QDAY ##0 01/21/17 04/28/24 tablet) coenzyme Q10 100 mg capsule 100 mg PO DAILY 08/18/18 04/28/24 magnesium oxide 500 mg PO DAILY 08/18/18 04/28/24 omega-3 fatty acids 1,000 mg PO DAILY 08/18/18 04/28/24 epinephrine 0.3 mg/0.3 mL 0.3 mg IM ONCE PRN bee sting 03/21/21 04/28/24 injection, auto-injector (EpiPen) calcium citrate 315 mg 2 tab PO DAILY #0 tabs 08/27/21 04/28/24 calcium-vitamin D3 6.25 mcg (250 unit) tablet (Citracal + Vitamin D Maximum) riboflavin (vitamin B2) 5 mg tablet 10 mg PO DAILY 04/28/24 04/28/24 Previous Rx's Medication Instructions Recorded warfarin 5 mg tablet 10 mg (2 x 5 mg) PO DAILY 90 days 08/28/20 #100 tabs alfuzosin 10 mg tablet,extended 10 mg PO ONCE PM #90 tabs 11/26/23 release 24 hr metoprolol succinate 25 mg See Rx Instructions .Route 02/05/24 tablet,extended release 24 hr .COMPLEX #90 tabs simvastatin 40 mg tablet See Rx Instructions .Route 02/05/24 .COMPLEX #90 tabs Allergies Allergy/AdvReac Type Severity Reaction Status Date / Time No Known Drug Allergies Allergy Verified 04/28/24 08:06 Review of Systems <Frankie Luo MD - Last Filed: 05/08/24 18:48> Review of Systems Narrative: per HPI Patient History <Frankie Luo MD - Last Filed: 05/08/24 18:48> Medical History Retinal arteritis of right eye History of malignant neoplasm of prostate Prostate cancer Medicare annual wellness visit, subsequent Adhesive capsulitis of left shoulder Hypertension Decline in verbal memory Sebaceous cyst Multiple nevi Well adult exam BPH w urinary obs/LUTS BPH NOS w/o ur obs/LUTS Elevated PSA Testicular cancer Osteoporosis (~2014) Osteopenia (~2004) Mumps (~1959) Measles (~1959) Chicken pox (~1959) Colon polyps (~2004) AAA (abdominal aortic aneurysm) (~1998) Testicular cancer (~1998) Surgical History H/O prosthetic heart valve History of testicular surgery Hx of aortic root repair Anesthesia 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 Social History marital status: household members: spouse Smoking Status: Never smoker alcohol intake: current substance use type: does not use caffeine: Yes Smoking Status: Never smoker alcohol intake frequency: 0-2 drinks per day Substance Use Type: does not use Exam <Frankie Luo MD - Last Filed: 05/08/24 18:48> Narrative Exam Narrative: GENERAL: Well-developed patient, in mild distress. HEAD: Atraumatic. Normocephalic. EYES: Pupils equal round and reactive. Extraocular motions intact. No scleral icterus. No injection or drainage. ENT: Nose without bleeding, purulent drainage. Throat without erythema, tonsillar hypertrophy or exudate. Airway patent. Left upper eyelid margin with inferior left eyebrow horizontal curvilinear laceration 3.0cm length. No scleral redness. Pupils equal round NECK: Trachea midline. Non tender CARDIOVASCULAR: Regular rate and rhythm without murmurs, gallops, or rubs. RESPIRATORY: Clear to auscultation. Breath sounds equal bilaterally. No wheezes, rales, or rhonchi. GASTROINTESTINAL: Abdomen soft, non-tender, nondistended. EXTREMITIES: No edema or joint tenderness. BACK: Nontender without deformity or crepitance. No flank tenderness. NEURO: AOx3. Grossly normal exam. SKIN: No rash or erythema of visible areas Initial Vital Signs Initial Vital Signs: Vital Signs Temperature 97.4 F L 05/08/24 02:26 Pulse Rate 56 L 05/08/24 02:26 Respiratory Rate 16 05/08/24 02:26 Blood Pressure 136/64 05/08/24 02:26 Pulse Oximetry 94 05/08/24 02:26 Oxygen Delivery Method Room Air 05/08/24 02:26 <Trino Mast DO - Last Filed: 05/08/24 07:41> Initial Vital Signs Initial Vital Signs: Vital Signs Temperature 97.4 F L 05/08/24 02:26 Pulse Rate 56 L 05/08/24 02:26 Respiratory Rate 16 05/08/24 02:26 Blood Pressure 136/64 05/08/24 02:26 Pulse Oximetry 94 05/08/24 02:26 Oxygen Delivery Method Room Air 05/08/24 02:26 Procedures <Trino Mast DO - Last Filed: 05/08/24 07:41> Laceration Repair Laceration 1: Site: face (Left eyelid) Side (If applicable): left Size (cm): 3 Description: linear Depth: simple, single layer Local Anesthetic: lidocaine 1% Amount of anesthesia used (mL): 3 Pre-repair: wound explored and deep structures intact Skin layer closed with: other (Chromic) Skin layer suture size: 5-0 Number of sutures: 9 Technique: simple, interrupted Course <Frankie Luo MD - Last Filed: 05/08/24 18:48> Orders Ordered: Discontinued Medications Bacitracin (Bacitracin Oint 0.9 Gm Pckt) 1 applic TOP NOW ONE Stop: 05/08/24 07:32 Last Admin: 05/08/24 07:52 Dose: 1 applic Documented By: BERTA Diphtheria/Tetanus/Acell Pertussis (Tet,Diph,Pertuss(Acell),Vac/Pf 0.5 Ml Syringe) 0.5 ml IM .ONCE ONE Stop: 05/08/24 06:16 Last Admin: 05/08/24 06:16 Dose: 0.5 ml Documented By: MARTA Lidocaine/Epinephrine (Lidocaine 2% W/Epi Inj 10 Ml Vial) 20 ml INJ INTRA-OP ONE Stop: 05/08/24 06:19 Last Admin: 05/08/24 06:28 Dose: 10 ml Documented By: ZACHARY Lidocaine/Prilocaine (Lidocaine/Prilocaine 5 Gm) 5 gm TOP NOW ONE Stop: 05/08/24 06:18 Last Admin: 05/08/24 06:28 Dose: 5 gm Documented By: ZACHARY Tetanus/Diphtheria Toxoids (Tetanus Diphtheria Toxoids 0.5 Ml Vial) 0.5 ml IM .ONCE ONE Stop: 05/08/24 06:00 Last Admin: 05/08/24 06:18 Dose: Not Given Documented By: MARTA Vital Signs Vital signs: Vital Signs - 8 hr 05/08/24 02:26 Temperature 97.4 F L Pulse Rate 56 L Respiratory Rate 16 Blood Pressure 136/64 Pulse Oximetry 94 Oxygen Delivery Method Room Air <Trino Mast DO - Last Filed: 05/08/24 07:41> Orders Ordered: Discontinued Medications Bacitracin (Bacitracin Oint 0.9 Gm Pckt) 1 applic TOP NOW ONE Stop: 05/08/24 07:32 Last Admin: 05/08/24 07:52 Dose: 1 applic Documented By: BERTA Diphtheria/Tetanus/Acell Pertussis (Tet,Diph,Pertuss(Acell),Vac/Pf 0.5 Ml Syringe) 0.5 ml IM .ONCE ONE Stop: 05/08/24 06:16 Last Admin: 05/08/24 06:16 Dose: 0.5 ml Documented By: MARTA Lidocaine/Epinephrine (Lidocaine 2% W/Epi Inj 10 Ml Vial) 20 ml INJ INTRA-OP ONE Stop: 05/08/24 06:19 Last Admin: 05/08/24 06:28 Dose: 10 ml Documented By: ZACHARY Lidocaine/Prilocaine (Lidocaine/Prilocaine 5 Gm) 5 gm TOP NOW ONE Stop: 05/08/24 06:18 Last Admin: 05/08/24 06:28 Dose: 5 gm Documented By: ZACHARY Tetanus/Diphtheria Toxoids (Tetanus Diphtheria Toxoids 0.5 Ml Vial) 0.5 ml IM .ONCE ONE Stop: 05/08/24 06:00 Last Admin: 05/08/24 06:18 Dose: Not Given Documented By: MARTA Vital Signs Vital signs: Vital Signs - 8 hr 05/08/24 02:26 Temperature 97.4 F L Pulse Rate 56 L Respiratory Rate 16 Blood Pressure 136/64 Pulse Oximetry 94 Oxygen Delivery Method Room Air MDM - Head Injury <Frankie Luo MD - Last Filed: 05/08/24 18:48> [facility] Narrative Medical decision making narrative: 68-year-old male on warfarin chronic anticoagulation due to mechanical aortic valve, fell from his bed, sustained laceration left eyelid/eyebrow area, no LOC, neuro nonfocal, no nausea or vomiting. CT head study showed no acute intracranial abnormality. Last tetanus shot probably 8 years ago, IM Tetanus ordered for update. See primary closure note for laceration repair 0700, LAT gel applied, signed out to Dr Mast for laceration repair, anticipate discharge home post-closure <Trino Mast DO - Last Filed: 05/08/24 07:41> [facility] Narrative Medical decision making narrative: 68-year-old male on warfarin chronic anticoagulation due to mechanical aortic valve, fell from his bed, sustained laceration left eyelid/eyebrow area, no LOC, neuro nonfocal, no nausea or vomiting. CT head study showed no acute intracranial abnormality. Last tetanus shot probably 8 years ago, IM Tetanus ordered for update. See primary closure note for laceration repair 0700, LAT gel applied, signed out to Dr Mast for laceration repair, anticipate discharge home post-closure Dr Mast: Received turned over. Review patient's history and physical and workup up to this point. Head CT shows no acute intracranial pathology. His tetanus was updated. He does have a laceration above the left eye that was superficial and closed as described above. He also has a left periorbital contusion. Will discharge patient home. He was given return precautions and follow-up instructions. He expressed understanding and agreement. Discharge Plan Departure Patient Disposition: Home Clinical Impression: Eyelid laceration, left, Contusion of eye, left, Fall Instructions: DI for Eye Contusion, DI for Laceration Repair Activity Restrictions/Additional Instructions: You can shower stitches above the left. The stitches are absorbable should come out on their own within the next 7-10 days. You can cover the area with antibiotic ointment such as Neosporin or bacitracin. I suspect that the bruising around her left eye will be present for the next several days. Ice over the maybe helpful as well. Return to the emergency department for or worsening symptoms. Prescriptions: No Action multivitamin [Multiple Vitamins] 1 EACH tablet 1 tab PO QDAY Qty: 0 calcium citrate-vitamin D3 [Citracal + D Maximum] 315 mg-6.25 mcg (250 unit) tablet 2 tab PO DAILY Qty: 0 alfuzosin 10 mg tablet extended release 24 hr 10 mg PO ONCE PM MDD 10mg Qty: 90 3RF Rx Instructions: Take one tablet by mouth at bedtime metoprolol succinate 25 mg tablet extended release 24 hr See Rx Instructions .ROUTE .COMPLEX Qty: 90 2RF Dose Instruction: TAKE 1 TABLET BY MOUTH DAILY Rx Instructions: TAKE 1 TABLET BY MOUTH DAILY simvastatin 40 mg tablet See Rx Instructions .ROUTE .COMPLEX Qty: 90 2RF Dose Instruction: TAKE 1 TABLET BY MOUTH DAILY Rx Instructions: TAKE 1 TABLET BY MOUTH DAILY coenzyme Q10 100 mg capsule 100 mg PO DAILY omega-3 fatty acids capsule 1,000 mg PO DAILY magnesium oxide 500 mg tablet 500 mg PO DAILY warfarin 5 mg tablet 10 mg PO DAILY 90 Days Qty: 100 3RF riboflavin (vitamin B2) 5 mg tablet 10 mg PO DAILY epinephrine [EpiPen] 0.3 mg/0.3 mL auto-injector 0.3 mg IM ONCE PRN (Reason: bee sting) Rx Instructions: as a single dose Referrals: Tapan Kemp DO [Primary Care Provider] - Stand Alone Forms: Patient Portal/API
[2024-05-08] MEDS: TET,DIPH,PERTUSS(ACELL),VAC/PF 0.5 ML SYRINGE IM (06:16)
[2024-05-08] MEDS: LIDOCAINE 2% W/EPI INJ 10 ML VIAL 20 ML INJ (06:28)
[2024-05-08] MEDS: LIDOCAINE/PRILOCAINE 5 GM TOP (06:28)
[2024-05-08 07:52] VITALS: BP 132/63; PULSE 43; RESP 20; TEMP 37.2; O2SAT 98
[2024-05-08] MEDS: BACITRACIN OINT 0.9 GM PCKT 1 APPLIC TOP (07:52)
== END 2024-05-08 07:54 | disposition home or self-care (01) ==
PROVIDERS: Emergency Provider Emergency Medicine; PCP Family Medicine
DX: S01.112A Laceration without foreign body of left eyelid and periocular area, initial encounter (principal); S00.12XA Contusion of left eyelid and periocular area, initial encounter; W06.XXXA Fall from bed, initial encounter; Z79.01 Long term (current) use of anticoagulants; Z95.2 Presence of prosthetic heart valve; Z23 Encounter for immunization
CPT/HCPCS: 12013; 70450; 90471; 99283; 99284; 90715

== ENCOUNTER → 2024-05-11 07:14 | Outpatient (CLI) | payer MEDICARE, SELFPAY ==
[2022-11-13 13:52] VITALS: BMI 25.0
--- NOTE | 2024-05-11 07:16 | DI.US.S_ITS ---
PROCEDURE: US CAROTID DOPPLER BI INDICATIONS: eval retinal insufficiency TECHNIQUE: Color and pulse Doppler interrogation was performed of both carotid systems, with image documentation and velocity measurements. COMPARISON: None. FINDINGS: Stenosis calculations are based on SRU (Society of Radiologists in Ultrasound) criteria. Right side: Brachial blood pressure: 130 mm Hg. Common carotid artery peak systolic velocity: 73 cm/sec. Internal carotid artery peak systolic velocity: 65 cm/sec. Internal carotid artery end diastolic velocity: 15 cm/sec. External carotid artery peak systolic velocity: 51 cm/sec. ICA/CCA peak systolic ratio: 0.5 . Noel scale imaging description: Mild atherosclerotic plaque. Percent internal carotid artery stenosis: Less than 50 percent. Vertebral artery: Flow direction is antegrade. Left side: Brachial blood pressure: 123 mm Hg. Common carotid artery peak systolic velocity: 74 cm/sec. Internal carotid artery peak systolic velocity: 77 cm/sec. Internal carotid artery end diastolic velocity: 26 cm/sec. External carotid artery peak systolic velocity: 54 cm/sec. ICA/CCA peak systolic ratio: 1 . Noel scale imaging description: Mild atherosclerotic plaque Percent internal carotid artery stenosis: Less than 50 percent. Vertebral artery: Flow direction is antegrade. IMPRESSION: Bilateral internal carotid arteries demonstrate less than 50 percent stenosis Dictated by: Mariana Martinez M.D. on 05/11/2024 at 10:00 Approved by: Mariana Martinez M.D. on 05/11/2024 at 10:25
== END ==
PROVIDERS: PCP Family Medicine; Referring Provider Family Medicine; Visit Provider Family Medicine
DX: H35.9 Unspecified retinal disorder (principal); H35.061 Retinal vasculitis, right eye; I65.23 Occlusion and stenosis of bilateral carotid arteries
CPT/HCPCS: 93880

== ENCOUNTER → 2024-05-11 07:17 | Outpatient (CLI) | payer MEDICARE, SELFPAY ==
[2022-11-13 13:52] VITALS: BMI 25.0
[2024-05-11 15:22] LABS: Prostate Specific Antigen 0.561 ng/mL (0.10-4.00)
== END ==
PROVIDERS: PCP Family Medicine; Referring Provider Physician Assistant; Visit Provider Physician Assistant
DX: C61 Malignant neoplasm of prostate (principal)
CPT/HCPCS: 36415; 84153

== ENCOUNTER → 2024-05-11 16:42 | Outpatient (CLI) | payer MEDICARE, SELFPAY ==
[2022-11-13 13:52] VITALS: BMI 25.0
--- NOTE | 2024-05-11 16:46 | DI.MRI.S_ITS ---
PROCEDURE: MR ANGIO HEAD WO CON INDICATIONS: eval retinal insufiicnecy TECHNIQUE: Noncontrast axial 3-D [id number] MR angiogram, with 3-dimensional maximum intensity projection (MIP) reformats of the internal carotid arteries and posterior circulation then performed. COMPARISON: [facility], CT, CT HEAD/BRAIN WO CON, 05/08/2024, 3:12. FINDINGS: Image quality: Excellent. Anterior circulation: Intracranial internal carotid arteries demonstrate normal size and intraluminal flow signal. The flow within the paired anterior cerebral arteries is normal and symmetric. The flow within the middle cerebral arteries is normal and symmetric. The anterior communicating artery is seen. No stenoses, occlusions, or aneurysms. Tortuosity of the partially visualized extracranial internal carotid arteries. Posterior circulation: Visualized portions of the vertebral arteries demonstrate normal caliber, and join to form a normal appearing basilar artery. The flow within the posterior cerebral arteries is normal and symmetric. No stenoses, occlusions, or aneurysms. IMPRESSION: No significant intracranial arterial abnormality. Dictated by: Derrell Shepherd M.D. on 05/12/2024 at 9:16 Approved by: Derrell Shepherd M.D. on 05/12/2024 at 9:19
== END ==
PROVIDERS: PCP Family Medicine; Referring Provider Family Medicine; Visit Provider Family Medicine
DX: C61 Malignant neoplasm of prostate (principal); I65.23 Occlusion and stenosis of bilateral carotid arteries; H35.9 Unspecified retinal disorder; H35.061 Retinal vasculitis, right eye
CPT/HCPCS: 36415; 70544; 84153; 93880

== ENCOUNTER → 2024-08-12 14:44 | Outpatient (CLI) | payer MEDICARE, SELFPAY ==
[2022-11-13 13:52] VITALS: BMI 25.0
[2024-08-12 18:55] LABS: BUN Creatinine Ratio 17.1 (6-22); Blood Urea Nitrogen 25 mg/dL (9-20); Calcium 8.9 mg/dL (8.4-10.2); Carbon Dioxide 28 mmol/L (22-32); Chloride 104 mmol/L (98-107); Estimated Glomerular Filt Rate 52 mL/min (>60); Glucose 84 mg/dL (80-110); HEMOLYSIS < 15 (0-50); Sodium 135 mmol/L (137-145)
== END ==
PROVIDERS: PCP Family Medicine; Referring Provider Internal Medicine Endocrinology, Diabetes & Metabolism; Visit Provider Internal Medicine Endocrinology, Diabetes & Metabolism
DX: M81.0 Age-related osteoporosis without current pathological fracture (principal)
CPT/HCPCS: 36415; 80048; 82306

== ENCOUNTER → 2024-09-06 10:01 | Outpatient (CLI) | payer MEDICARE, SELFPAY ==
[2022-11-13 13:52] VITALS: BMI 25.0
[2024-09-06 10:35] LABS: BUN Creatinine Ratio 20.6 (6-22); Blood Urea Nitrogen 27 mg/dL (9-20); Calcium 9.4 mg/dL (8.4-10.2); Carbon Dioxide 30 mmol/L (22-32); Chloride 102 mmol/L (98-107); Estimated Glomerular Filt Rate 59 mL/min (>60); Glucose 86 mg/dL (80-110); HEMOLYSIS < 15 (0-50); Potassium 4.1 mmol/L (3.4-5.1); Sodium 136 mmol/L (137-145)
== END ==
PROVIDERS: PCP Family Medicine; Referring Provider Internal Medicine Endocrinology, Diabetes & Metabolism; Visit Provider Internal Medicine Endocrinology, Diabetes & Metabolism
DX: N28.9 Disorder of kidney and ureter, unspecified (principal)
CPT/HCPCS: 36415; 80048

== ENCOUNTER → 2025-01-06 13:25 | Outpatient (CLI) | payer MEDICARE, SELFPAY ==
[2022-11-13 13:52] VITALS: BMI 25.0
[2025-01-06 15:48] LABS: Prostate Specific Antigen 0.404 ng/mL (0.10-4.00)
== END ==
LOC: LAB 13:26
PROVIDERS: PCP Family Medicine; Referring Provider Physician Assistant; Visit Provider Physician Assistant
DX: C61 Malignant neoplasm of prostate (principal)
CPT/HCPCS: 36415; 84153

== ENCOUNTER → 2025-07-07 14:40 | Outpatient (CLI) | payer MEDICARE, SELFPAY ==
[2022-11-13 13:52] VITALS: BMI 25.0
[2025-07-07 15:06] LABS: Add Manual Diff / Slide Review NO; Hematocrit 40.0 % (41-53); Hemoglobin 13.7 g/dL (13.5-17.5); Lymphocytes Absolute Auto 600 /uL (1100-4500); Mean Corpuscular HGB Conc 34.4 % (30-36); Mean Corpuscular Hemoglobin 32.0 PG (26-34); Mean Corpuscular Volume 93.0 fL (80-100); Platelet Count 141 X10^3/uL (150-400)
[2025-07-07 15:26] LABS: Alanine Aminotransferase 27 IU/L (<50); Albumin 4.2 g/dL (3.5-5.0); Albumin Globulin Ratio 1.6 (1.0-2.8); Alkaline Phosphatase 48 U/L (38-126); Blood Urea Nitrogen 28 mg/dL (9-20); Calcium 8.9 mg/dL (8.4-10.2); Carbon Dioxide 28 mmol/L (22-32); Chloride 102 mmol/L (98-107); Cholesterol 193 mg/dL (140-199); Estimated Glomerular Filt Rate 59 mL/min (>60); Globulin 2.7 g/dL (1.7-4.1); Glucose 87 mg/dL (70-99); HDL Cholesterol 70 mg/dL (40-60); HEMOLYSIS < 15 (0-50); Potassium 4.4 mmol/L (3.4-5.1); Sodium 137 mmol/L (137-145); Total Protein 6.9 g/dL (6.3-8.2); Triglycerides 70 mg/dL (35-150)
== END ==
PROVIDERS: PCP Family Medicine; Referring Provider Family Medicine; Visit Provider Physician Assistant
DX: K62.7 Radiation proctitis (principal); I10 Essential (primary) hypertension; Z12.5 Encounter for screening for malignant neoplasm of prostate; N40.1 Benign prostatic hyperplasia with lower urinary tract symptoms; N13.8 Other obstructive and reflux uropathy; E78.2 Mixed hyperlipidemia
CPT/HCPCS: 36415; 80053; 80061; 85025; G0103